=== PATIENT | male | born 1960 | race Caucasian/White ===

== ENCOUNTER 2018-08-06 00:34 | Inpatient (IN) | payer MEDICARE ==
[2018-08-06] MEDS ORDERED: Vancomycin 1GM/ Ns 250ML*** 1 GM/250 ML IVPB IV ONE (02:05)
[2018-08-06] MEDS ORDERED: Zosyn 3.375GM/100 Ml D5W 3.375 GM/100 ML IVPB IV STA (02:05)
[2018-08-06] MEDS ORDERED: Sodium Chloride 0.9% 1000 ML 1,000 ML IV SCH (02:15)
[2018-08-06 02:41] LABS: Mean Cell Volume 101.6 fl (78-100); Mean Corpuscular Hemoglobin 31.9 pg (26-32); Mean Corpuscular Hgb Concent. 31.4 g/dl (32-36); Mean Platelet Volume 9.9 fl (6-9.5); Platelet Count 241 K/mm3 (150-450); Red Blood Count 5.02 M/mm3 (4.1-5.6); Red Cell Distribution Width 13.6 % (11.5-14.0); White Blood Count 7.6 K/mm3 (4.0-10.5)
[2018-08-06 03:05] LABS: INR 1.2 (0.8-3.0)
[2018-08-06 03:09] LABS: ALBUMIN 3.5 g/dL (3.5-5.0); ALKALINE PHOSPHATASE 72 U/L (38-126); ANION GAP 11.4 MEQ/L (5-15); BLOOD UREA NITROGEN 18 mg/dL (9-20); CHLORIDE 103 mmol/L (98-107); Calcium 9.1 mg/dL (8.4-10.2); Carbon Dioxide 31 mmol/L (22-30); Creatinine 1 0.82 mg/dL (0.66-1.25); Glucose 97 mg/dL (74-106); Potassium 4.1 mmol/L (3.5-5.1); SGOT/AST 15 U/L (17-59); SGPT/ALT 9 U/L (0-50); SODIUM 141 mmol/L (137-145); Total Protein 6.9 g/dL (6.3-8.2)
[2018-08-06] MEDS ORDERED: Zosyn 3.375GM/100 Ml D5W 3.375 GM/100 ML IVPB IV ONE (03:14)
--- NOTE | 2018-08-06 03:47 | ERPHSYRPT ---
- History of Present Illness Time Seen by Provider: 08/06/18 01:25 Source: patient Exam Limitations: clinical condition Patient Subjective Stated Complaint: pt states he has poor circulationin his legs and has wounds to bilat lower legs. states he sees dr schwarz but is not able to get in until next week Triage Nursing Assessment: pt alert and oriented. answers questions approp. pt ambulatory with steady gait noted. respirations nonlabored wth lungs cta. scaling, flaking skin noted to bilat lower legs with redness warmth. open areas noted to bilat posterior lower legs with yellow drainage Physician History: PATIENT WITH A HISTORY OF HYPERTENSION, TIA AND PERIPHERAL VASCULAR DISEASE COMPLAINS OF REDNESS, WARMTH, SWELLING AND DRAINAGE FROM BOTH LEGS OVER THE PAST WEEK. HAS ASSOCIATED CALF PAIN, DENIES FEVER OR CHILLS. Method of Injury: other (DENIES INJURY) Occurred: days ago Quality: constant, sharpness Severity of Pain-Max: moderate Severity of Pain-Current: moderate Lower Extremities Pain: leg: bilateral Modifying Factors: Improves With: movement Allergies/Adverse Reactions: No Known Drug Allergies Allergy (Verified 08/06/18 01:25) Home Medications: Aspirin 81 mg PO DAILY 09/16/15 [History] Budesonide/Formoterol Fumarate [Symbicort 160-4.5 Mcg Inhaler] 2 inh IH BID [History] Methylphenidate 5 mg [Ritalin 5 MG] 10 mg PO BID 09/16/15 [History] Hydrocodone Bit/Acetaminophen [[place] 5-325 Tablet] 1 tab DAILY 01/13/16 [History ] Cephalexin Mh 500 mg [Keflex 500 mg] 500 mg TID 03/02/16 [History] Hx Tetanus, Diphtheria Vaccination/Date Given: Yes (2015) Hx Influenza Vaccination/Date Given: No Hx Pneumococcal Vaccination/Date Given: No Immunizations Up to Date: Yes - Review of Systems Constitutional: No Fever, No Chills Eyes: No Symptoms Ears, Nose, & Throat: No Symptoms Respiratory: No Symptoms, No Cough, No Dyspnea Cardiac: No Symptoms, No Chest Pain, No Edema, No Syncope Abdominal/Gastrointestinal: No Symptoms, No Abdominal Pain, No Nausea, No Vomiting, No Diarrhea Genitourinary Symptoms: No Symptoms, No Dysuria Musculoskeletal: No Back Pain, No Neck Pain Skin: Cellulitis, No Rash Neurological: No Symptoms, No Dizziness, No Focal Weakness, No Sensory Changes Psychological: No Symptoms Endocrine: No Symptoms All Other Systems: Reviewed and Negative - Past Medical History Pertinent Past Medical History: Yes Neurological History: No Pertinent History ENT History: No Pertinent History Cardiac History: Congestive Heart Failure Respiratory History: CHF, COPD Endocrine Medical History: No Pertinent History Musculoskeletal History: Other GI Medical History: No Pertinent History History: No Pertinent History Psycho-Social History: No Pertinent History Male Reproductive Disorders: No Pertinent History Other Medical History: lower back pain, chronic venous insuff - Past Surgical History Past Surgical History: Yes Neuro Surgical History: No Pertinent History Cardiac: No Pertinent History Respiratory: No Pertinent History Gastrointestinal: Hernia Repair Genitourinary: No Pertinent History Musculoskeletal: No Pertinent History Male Surgical History: No Pertinent History - Social History Smoking Status: Current every day smoker How long have you smoked: 30-40yrs Exposure to second hand smoke: Yes Drug Use: none Patient Lives Alone: Yes - Nursing Vital Signs Nursing Vital Signs: Initial Vital Signs Temperature 98.4 F 08/06/18 01:10 Pulse Rate 90 08/06/18 01:10 Respiratory Rate 18 08/06/18 01:10 Blood Pressure 113/77 08/06/18 01:10 O2 Sat by Pulse Oximetry 94 L 08/06/18 01:10 Pain Scale Pain Intensity 8 - Physical Exam General Appearance: no apparent distress Eyes, Ears, Nose, Throat Exam: normal ENT inspection Neck Exam: normal inspection Cardiovascular/Respiratory Exam: chest non-tender, normal breath sounds, heart sounds normal Gastrointestinal/Abdominal Exam: non-tender, soft Back Exam: normal inspection, normal range of motion Hips Exam: bilateral: non-tender Legs Exam: bilateral leg: soft tissue tenderness, swelling (MARKED ERYTHEMA, SWELLING BILAT MONAHAN AND CALF CIRCUMFERENCE 41 CM. WITH SEROSANGUINOUS DRAINAGE. BILAT SCALY EXUDATE OVER SHINS) Foot Exam: bilateral foot: other (BILATERAL PEDIS PULSES 2+) DTR - Lower Extremities Exam: knee (R): 2+, knee (L): 2+, ankle (R): 2+, ankle ( L): 2+ Neuro/Tendon Exam: normal sensation Mental Status Exam: alert, oriented x 3 Skin Exam: normal color SpO2 Interpretation: normal SpO2: 94 - Radiology Ultrasound Exam Venous Lower Extremity Ultrasound: discussed w/radiologist (BILATERAL LOWER EXTREMITY VENOUS DOPPLER NEGATIVE) Ordered Tests: Active Orders 24 hr Category Date Time Status Up Ad Monserrat ROUTINE Activity 08/06/18 05:18 Active Call Admit Doctor for Orders ON ADMISSION Care 08/06/18 05:17 Active Code Status Order ROUTINE Care 08/06/18 05:17 Active IV Care Q6H Care 08/06/18 05:[address] in Observation ROUTINE Care 08/06/18 05:17 Active Vital Signs Q4H Care 08/06/18 05:17 Active Regular Diet Diet 08/06/18 Breakfast Active VENOUS BILATERAL EXTREMITY [US] Stat Exams 08/06/18 05:43 Taken BLOOD CULTURE Stat Lab 08/06/18 02:35 Received CBC W DIFF Stat Lab 08/06/18 02:35 Completed CMP Stat Lab 08/06/18 02:35 Completed CULTURE,WOUND Stat Lab 08/06/18 02:03 Ordered D-DIMER QUANTITATION Stat Lab 08/06/18 02:35 Completed Manual Differential NC Stat Lab 08/06/18 02:35 Completed PROTIME WITH INR Stat Lab 08/06/18 02:35 Completed Transfer Order Routine Transfer 08/06/18 Ordered Medication Summary Generic Name Dose Route Start Last Admin Trade Name Freq PRN Reason Stop Dose Admin Acetaminophen 650 mg 08/06/18 05:17 Tylenol 325 Mg PO 09/05/18 05:16 Q4H PRN PRN PAIN AND/OR FEVER Hydrocodone Bitart/Acetaminophen 1 tab 08/06/18 05:20 [place] 5/325 Mg PO 08/11/18 05:19 QID PRN PRN PAIN Sodium Chloride 1,000 mls @ 250 mls/hr 08/06/18 02:15 08/06/18 03:17 Sodium Chloride 0.9% 1000 Ml IV 09/05/18 02:14 250 mls/hr .Q4H LUIS Administration Piperacillin Sod/Tazobactam Sod 3.375 gm in 100 mls @ 200 mls/hr 08/06/18 06: 00 Zosyn 3.375gm/100 Ml D5w IV 09/05/18 05:59 Q6HT LUIS Sodium Chloride 1,000 mls @ 75 mls/hr 08/06/18 05:30 Sodium Chloride 0.9% 1000 Ml IV 09/05/18 05:29 .[id number] LUIS Vancomycin HCl 1 gm/ Sodium 250 mls @ 167 mls/hr 08/06/18 05:30 Chloride IV 09/05/18 05:29 Q24H LUIS Methylphenidate HCl 10 mg 08/06/18 10:00 Ritalin 5 Mg PO 08/11/18 09:59 BID LUIS Discontinued Medications Generic Name Dose Route Start Last Admin Trade Name Freq PRN Reason Stop Dose Admin Vancomycin HCl 1 gm in 250 mls @ 167 mls/hr 08/06/18 02:05 08/06/18 03:59 Vancomycin 1gm/ Ns 250ml IV 08/06/18 03:34 167 mls/hr STAT ONE Administration Piperacillin Sod/Tazobactam Sod 3.375 gm in 100 mls @ 200 mls/hr 08/06/18 02: 05 08/06/18 03:18 Zosyn 3.375gm/100 Ml D5w IV 08/06/18 02:34 200 ml/hr STAT STA 200 mls/hr Administration Piperacillin Sod/Tazobactam Sod Confirm 08/06/18 03:14 Zosyn 3.375gm/100 Ml D5w Administered 08/06/18 03:15 Dose 3.375 gm in 100 mls @ ud IV .STK-MED ONE Vancomycin HCl Confirm 08/06/18 03:51 Vancomycin 1gm/ Ns 250ml Administered 08/06/18 03:52 Dose 250 mls @ ud IV .STK-MED ONE Lab/Rad Data: Laboratory Result Diagrams 08/06/18 02:35 08/06/18 02:35 Laboratory Results 08/06/18 08/06/18 08/06/18 Range/Units 02:35 02:35 02:35 WBC 7.6 (4.0-10.5) K/mm3 RBC 5.02 (4.1-5.6) M/mm3 Hgb 16.0 (12.5-18.0) gm/dl Hct 51.0 H (42-50) % MCV 101.6 H (78-100) fl MCH 31.9 (26-32) pg MCHC 31.4 L (32-36) g/dl RDW 13.6 (11.5-14.0) % Plt Count 241 (150-450) K/mm3 MPV 9.9 H (6-9.5) fl Segmented Neutrophils 68 H (36.-66.) % Band Neutrophils 2 (0.0-2.0) % Lymphocytes (Manual) 13 L (24-44) % Monocytes (Manual) 9 (0.0-12.0) % Eosinophils (Manual) 7 H (0.00-3.0) % Atypical Lymphocytes 1 % Toxic Granulation 1+ Platelet Estimate NORMAL (NORMAL) RBC Morphology ABNORMAL Poikilocytosis 1+ PT 14.0 H (8.83-12.87) SECONDS INR 1.20 (0.8-3.0) D-Dimer 704 H* (215-500) ng/mL Sodium 141 (137-145) mmol/L Potassium 4.1 (3.5-5.1) mmol/L Chloride 103 (98-107) mmol/L Carbon Dioxide 31 H (22-30) mmol/L Anion Gap 11.4 (5-15) MEQ/L BUN 18 (9-20) mg/dL Creatinine 0.82 (0.66-1.25) mg/dL Estimated GFR > 60.0 ML/MIN Glucose 97 (74-106) mg/dL Calcium 9.1 (8.4-10.2) mg/dL Total Bilirubin 0.50 (0.2-1.3) mg/dL AST 15 L (17-59) U/L ALT 9 (0-50) U/L Alkaline Phosphatase 72 (38-126) U/L Serum Total Protein 6.9 (6.3-8.2) g/dL Albumin 3.5 (3.5-5.0) g/dL - Progress Progress Note: 08/06/18 04:19 IV NORMAL SALINE 100ML/HR AFTER 2 SETS OF BLOOD CULTURES, VANCOMYCIN 1GM IVPB AND ZOSYN 3.375GM IVPB Discussed with DrAdamaris: Andre (DISCUSSED WITH DR SEGUNDO AT 0415 FOR OBSERVATION) - Departure Departure Disposition: Observation Clinical Impression: BILATERAL LOWER EXTREMITY CELLULITIS Condition: Stable Critical Care Time: No Referrals: SHAE LI MD [Primary Care Provider] -
[2018-08-06] MEDS ORDERED: Vancomycin 1GM/ Ns 250ML*** 250 ML IV ONE (03:51)
[2018-08-06 04:12] LABS: ATYPICAL LYMPHS 1 %; BAND 2 % (0.0-2.0); Eosinophil 7 % (0.00-3.0); Lymphocytes 13 % (24-44); Monocyte 9 % (0.0-12.0); Neutrophils 68 % (36.-66.); Platelet Estimate NORMAL (NORMAL); Total Cells Counted 100; Toxic Granulation 1+
[2018-08-06 04:13] LABS: Poikilocytosis 1+
[2018-08-06] MEDS ORDERED: TYLENOL 325 MG PO PRN (05:17)
--- NOTE | 2018-08-06 07:57 | XRAY ---
Indication: Bilateral pain and swelling. Two-dimensional sonogram and color Doppler imaging of the major venous vessels of the left and right leg was performed. Comparison: Right leg venous exam August 06, 2018. No thrombus seen in the examined deep venous vessels of the left and right leg including greater saphenous vein. Veins demonstrate normal compressibility. Venous waveforms are normal with and without augmentation. Impression: Left and right legs negative for DVT. Comment: Preliminary report was given.
--- NOTE | 2018-08-06 08:00 | XRAY ---
Indication: Dyspnea. Comparison: May 11, 2018. Portable chest does not include the right costophrenic angle. There remains chronic interstitial lung markings and a few tiny calcified granulomas without focal infiltrate, consolidation, or large effusion. Heart is not enlarged. Bony thorax intact again with mild degenerative changes. No new/acute findings. Impression: Stable nonacute limited chest with chronic features.
[2018-08-06] MEDS: Zosyn 3.375GM/100 Ml D5W 3.375 GM/100 ML IVPB IV SCH ×4 (09:00→23:33)
[2018-08-06] MEDS: Ritalin 5 MG PO SCH ×2 (09:38→21:28)
[2018-08-06] MEDS: NORCO 5/325 MG PO PRN (09:41)
[2018-08-06] MEDS: Sodium Chloride 0.9% 1000 ML 1,000 ML IV SCH (09:42)
--- NOTE | 2018-08-06 11:28 | PCM.HP ---
History of Present Illness - Chief Complaint Chief Complaint: CELLULITIS BILATERAL LOWER EXTREMITIES History of Present Illness: is a 58 year old male who presented to the ER with a complaint of redness , pain and swelling to both lower legs for the last week. He has had problems with wounds on legs before and infections. He does have a history of chf, no known fever or chills. - Review of Systems Constitutional: No Fever, No Chills Respiratory: No Cough, No Short Of Breath Cardiac: No Chest Pain, No Edema, No Syncope Skin: Cellulitis Neurological: No Dizziness, No Focal Weakness, No Sensory Changes All Other Systems: Reviewed and Negative Medications & Allergies Home Medications: Home Medication List Budesonide/Formoterol Fumarate [Symbicort 160-4.5 Mcg Inhaler] 2 inh IH BID [History Confirmed 08/06/18] Methylphenidate 5 mg [Ritalin 5 MG] 10 mg PO BID 09/16/15 [History Confirmed 08/06/18] Carvedilol 3.125 mg [Coreg 3.125 MG] 3.125 mg PO BID 08/06/18 [History Confirmed 08/06/18] Potassium Chloride 10 Meq Tab* [Klor Con 10 MEQ] 10 meq PO DAILY 08/06/18 [ History Confirmed 08/06/18] Sacubitril/Valsartan [Entresto 49 mg-51 mg Tablet] 1 each PO BID 08/06/18 [ History Confirmed 08/06/18] Allergies/Adverse Reactions: Allergies Allergy/AdvReac Type Severity Reaction Status Date / Time No Known Drug Allergies Allergy Verified 08/06/18 01:25 - Past Medical History Past Medical History: Yes Neurological History: No Pertinent History ENT History: No Pertinent History Cardiac History: Congestive Heart Failure Respiratory History: CHF, COPD Endocrine Medical History: No Pertinent History Musculoskelatal History: Other GI Medical History: No Pertinent History History: No Pertinent History Pyscho-Social History: No Pertinent History Male Reproductive Disorders: No Pertinent History Comment: lower back pain, chronic venous insuff - Past Surgical History Past Surgical History: Yes Neuro Surgical History: No Pertinent History Cardiac History: No Pertinent History Respiratory Surgery: No Pertinent History GI Surgical History: Hernia Repair Genitourinary Surgical Hx: No Pertinent History Musculskeletal Surgical Hx: No Pertinent History Male Surgical History: No Pertinent History - Social History Smoking Status: Current every day smoker How long have you smoked: 40 YEARS Exposure to second hand smoke: No Alcohol: None Drug Use: none - Physical Exam Vital Signs: Vital Signs - 24 hr Temp Pulse Resp BP Pulse Ox 08/06/18 07:49 98.7 F 68 18 106/57 91 L 08/06/18 07:36 98.7 F 68 18 106/57 91 L 08/06/18 06:20 62 16 107/62 97 08/06/18 05:45 94 L 08/06/18 05:00 91 H 18 107/59 94 L 08/06/18 04:00 90 18 105/71 100 08/06/18 03:00 84 16 119/82 94 L 08/06/18 02:00 87 18 115/76 98 08/06/18 01:10 98.4 F 90 18 113/77 94 L Oxygen-Last 24 hours O2 Percentage 2 Liters = 28% O2 Percentage 2 Liters = 28% General Appearance: no apparent distress, alert Eye Exam: PERRL/EOMI, eyes nml inspection Respiratory Exam: normal breath sounds, lungs clear, No respiratory distress Cardiovascular Exam: regular rate/rhythm, normal heart sounds, normal peripheral pulses Gastrointestinal/Abdomen Exam: soft, normal bowel sounds, No tenderness, No mass Extremity Exam: pedal edema, swelling (yellow crusting, redness, swelling and warmth to bilateral lower legs. foul odor and drainage present) Results - Labs Lab/Micro Results: Lab Results-Last 24 Hours 08/06/18 08/06/18 08/06/18 Range/Units 02:35 02:35 02:35 WBC 7.6 (4.0-10.5) K/mm3 RBC 5.02 (4.1-5.6) M/mm3 Hgb 16.0 (12.5-18.0) gm/dl Hct 51.0 H (42-50) % MCV 101.6 H (78-100) fl MCH 31.9 (26-32) pg MCHC 31.4 L (32-36) g/dl RDW 13.6 (11.5-14.0) % Plt Count 241 (150-450) K/mm3 MPV 9.9 H (6-9.5) fl Segmented Neutrophils 68 H (36.-66.) % Band Neutrophils 2 (0.0-2.0) % Lymphocytes (Manual) 13 L (24-44) % Monocytes (Manual) 9 (0.0-12.0) % Eosinophils (Manual) 7 H (0.00-3.0) % Atypical Lymphocytes 1 % Toxic Granulation 1+ Platelet Estimate NORMAL (NORMAL) RBC Morphology ABNORMAL Poikilocytosis 1+ PT 14.0 H (8.83-12.87) SECONDS INR 1.20 (0.8-3.0) D-Dimer 704 H* (215-500) ng/mL Sodium 141 (137-145) mmol/L Potassium 4.1 (3.5-5.1) mmol/L Chloride 103 (98-107) mmol/L Carbon Dioxide 31 H (22-30) mmol/L Anion Gap 11.4 (5-15) MEQ/L BUN 18 (9-20) mg/dL Creatinine 0.82 (0.66-1.25) mg/dL Estimated GFR > 60.0 ML/MIN Glucose 97 (74-106) mg/dL Calcium 9.1 (8.4-10.2) mg/dL Total Bilirubin 0.50 (0.2-1.3) mg/dL AST 15 L (17-59) U/L ALT 9 (0-50) U/L Alkaline Phosphatase 72 (38-126) U/L Serum Total Protein 6.9 (6.3-8.2) g/dL Albumin 3.5 (3.5-5.0) g/dL - Radiology Impressions Radiology Exams & Impressions: Radiology Procedures Category Date Time Status CHEST 1 VIEW (PORTABLE) Stat Exams 08/06/18 06:24 Completed VENOUS BILATERAL EXTREMITY [US] Stat Exams 08/06/18 05:43 Completed - Other Procedures and Tests Respiratory Therapy 08/06/18 08:05 RT Screen per Nursing Assess Smoking Cessation Education Assessment/Plan (1) Bilateral cellulitis of lower leg Current Visit: Yes Status: Acute Assessment & Plan: on vanc/zosyn, wound culture pending. will consult PT for wound care Code(s): L03.116 - CELLULITIS OF LEFT LOWER LIMB; L03.115 - CELLULITIS OF RIGHT LOWER LIMB (2) CHF (congestive heart failure) Current Visit: Yes Status: Acute Assessment & Plan: patient is on coreg and entresto, july have to hold due to low bp. assume this is why he is on the ritalin Code(s): I50.9 - HEART FAILURE, UNSPECIFIED
[2018-08-06] MEDS: VANCOCIN 1 GM VIAL*** 1.5 GM in Sodium Chloride 0.9% 500 ML 500 ML IV SCH ×2 (12:31→21:28)
[2018-08-06] MEDS: Coreg 3.125 MG PO SCH ×2 (12:55→21:28)
[2018-08-06] MEDS: ENTRESTO 49 MG-51 MG TABLET PO SCH ×2 (12:56→21:28)
[2018-08-06] MEDS: Klor Con 10 MEQ PO SCH (14:14)
[2018-08-06] MEDS: Advair Hfa 230/21 Mcg COMMON CANISTER IH SCH (20:17)
[2018-08-06] MEDS ORDERED: [UNRECOGNIZED DRUG - OTHER] IH SCH (22:00)
[2018-08-06] MEDS ORDERED: BUDESONIDE IH SCH (22:00)
[2018-08-06] MEDS ORDERED: FORMOTEROL FUMARATE IH SCH (22:00)
[2018-08-07] MEDS: Zosyn 3.375GM/100 Ml D5W 3.375 GM/100 ML IVPB IV SCH ×5 (00:58→23:27)
[2018-08-07] MEDS: Sodium Chloride 0.9% 1000 ML 1,000 ML IV SCH (05:40)
[2018-08-07 06:18] LABS: BASOPHIL % 0.6 % (0.0-0.4); Basophil (Absolute #) 0.04 (0-0.4); Eosinophil % 5.9 % (0.00-5.0); Eosinophil (Absolute #) 0.37 (0-0.5); Granulocyte Absolute (ANC) 3.76 (1.4-6.9); Hematocrit 44.3 % (42-50); Hemoglobin 13.8 gm/dl (12.5-18.0); Lymphocyte (Absolute #) 1.19 (1.0-4.6); Mean Cell Volume 103.7 fl (78-100); Mean Corpuscular Hemoglobin 32.3 pg (26-32); Mean Corpuscular Hgb Concent. 31.2 g/dl (32-36); Mean Platelet Volume 10.2 fl (6-9.5); Monocyte (Absolute #) 0.91 (0.0-1.3); Monocytes % 14.5 % (0.0-12.0); Platelet Count 212 K/mm3 (150-450); Red Blood Count 4.27 M/mm3 (4.1-5.6); Red Cell Distribution Width 13.7 % (11.5-14.0); White Blood Count 6.3 K/mm3 (4.0-10.5)
[2018-08-07 06:21] LABS: ANION GAP 9.3 MEQ/L (5-15); BLOOD UREA NITROGEN 15 mg/dL (9-20); CHLORIDE 109 mmol/L (98-107); Calcium 8.7 mg/dL (8.4-10.2); Carbon Dioxide 27 mmol/L (22-30); Creatinine 1 0.65 mg/dL (0.66-1.25); Glucose 85 mg/dL (74-106); SODIUM 141 mmol/L (137-145)
[2018-08-07] MEDS: Advair Hfa 230/21 Mcg COMMON CANISTER IH SCH ×2 (07:26→20:31)
--- NOTE | 2018-08-07 09:04 | PCM.NOTE ---
Date and Time: 08/07/18902 Subjective Assessment: patient thinks his legs have improved slightly, he has no new complaints today. Objective Exam General Appearance: no apparent distress Neurologic Exam: alert, oriented x 3 Skin Exam: normal color, warm Respiratory Exam: normal breath sounds, lungs clear, No respiratory distress Cardiovascular Exam: regular rate/rhythm, normal heart sounds Gastrointestinal/Abdomen Exam: soft, No tenderness, No mass Extremity Exam: swelling (redness, 2+ edema BLE, warmth) OBJECTIVE DATA Vital Signs: Vital Signs - 24 hr Temp Pulse Resp BP Pulse Ox 08/07/18 07:37 98.5 F 78 18 108/72 97 08/07/18 04:00 98.5 F 79 20 103/57 92 L 08/07/18 00:20 98.7 F 86 22 107/67 94 L 08/06/18 20:17 75 18 95 08/06/18 20:00 98.7 F 89 22 108/64 92 L 08/06/18 16:00 99.0 F 101 H 18 94/54 90 L 08/06/18 13:04 71 16 92 L 08/06/18 12:00 99.1 F 74 18 88/52 91 L Oxygen-Last 24 hours O2 Percentage 2 Liters = 28% O2 Percentage 2 Liters = 28% O2 Percentage 2 Liters = 28% O2 Percentage 2 Liters = 28% O2 Percentage 2 Liters = 28% O2 Percentage 2 Liters = 28% Pain Assessment - Last Documented Pain Intensity 5 Pain Scale Used 0-10 Pain Scale Intake and Output: Intake & Output 08/04/18 08/05/18 08/06/18 08/07/18 11:59 11:59 11:59 11:59 Intake Total 240 3434 Output Total 200 750 Balance 40 2684 Weight 110 kg Lab Results: Lab Results-Last 24 Hours 08/07/18 08/07/18 Range/Units 05:55 05:55 WBC 6.3 (4.0-10.5) K/mm3 RBC 4.27 (4.1-5.6) M/mm3 Hgb 13.8 (12.5-18.0) gm/dl Hct 44.3 (42-50) % MCV 103.7 H (78-100) fl MCH 32.3 H (26-32) pg MCHC 31.2 L (32-36) g/dl RDW 13.7 (11.5-14.0) % Plt Count 212 (150-450) K/mm3 MPV 10.2 H (6-9.5) fl Gran % 60.0 (36.0-66.0) % Eos # (Auto) 0.37 (0-0.5) Absolute Lymphs (auto) 1.19 (1.0-4.6) Absolute Monos (auto) 0.91 (0.0-1.3) Lymphocytes % 19.0 L (24.0-44.0) % Monocytes % 14.5 H (0.0-12.0) % Eosinophils % 5.9 H (0.00-5.0) % Basophils % 0.6 (0.0-0.4) % Absolute Granulocytes 3.76 (1.4-6.9) Basophils # 0.04 (0-0.4) Sodium 141 (137-145) mmol/L Potassium 4.0 (3.5-5.1) mmol/L Chloride 109 H (98-107) mmol/L Carbon Dioxide 27 (22-30) mmol/L Anion Gap 9.3 (5-15) MEQ/L BUN 15 (9-20) mg/dL Creatinine 0.65 L (0.66-1.25) mg/dL Estimated GFR > 60.0 ML/MIN Glucose 85 (74-106) mg/dL Calcium 8.7 (8.4-10.2) mg/dL Radiology Exams: Radiology Procedures Category Date Time Status CHEST 1 VIEW (PORTABLE) Stat Exams 08/06/18 06:24 Completed VENOUS BILATERAL EXTREMITY [US] Stat Exams 08/06/18 05:43 Completed Assessment/Plan (1) Bilateral cellulitis of lower leg Current Visit: Yes Status: Acute Assessment & Plan: on vanc/zosyn, culture pending. seems to be improved slightly today Code(s): L03.116 - CELLULITIS OF LEFT LOWER LIMB; L03.115 - CELLULITIS OF RIGHT LOWER LIMB (2) CHF (congestive heart failure) Current Visit: Yes Status: Acute Code(s): I50.9 - HEART FAILURE, UNSPECIFIED
[2018-08-07] MEDS: ENTRESTO 49 MG-51 MG TABLET PO SCH ×2 (09:35→21:11)
[2018-08-07] MEDS: Coreg 3.125 MG PO SCH ×2 (09:35→21:11)
[2018-08-07] MEDS: Ritalin 5 MG PO SCH ×2 (09:36→21:03)
[2018-08-07] MEDS: Klor Con 10 MEQ PO SCH (09:36)
[2018-08-07] MEDS: NORCO 5/325 MG PO PRN ×2 (10:17→16:24)
[2018-08-07] MEDS: VANCOCIN 1 GM VIAL*** 1.5 GM in Sodium Chloride 0.9% 500 ML 500 ML IV SCH ×2 (10:53→21:03)
[2018-08-08] MEDS: Sodium Chloride 0.9% 1000 ML 1,000 ML IV SCH ×2 (03:50→21:36)
[2018-08-08] MEDS: Zosyn 3.375GM/100 Ml D5W 3.375 GM/100 ML IVPB IV SCH (05:35)
[2018-08-08 06:05] LABS: Hematocrit 42.6 % (42-50); Hemoglobin 13.5 gm/dl (12.5-18.0); Mean Cell Volume 102.9 fl (78-100); Mean Corpuscular Hemoglobin 32.6 pg (26-32); Mean Corpuscular Hgb Concent. 31.7 g/dl (32-36); Platelet Count 192 K/mm3 (150-450); Red Blood Count 4.14 M/mm3 (4.1-5.6); Red Cell Distribution Width 13.6 % (11.5-14.0)
[2018-08-08 06:15] LABS: ANION GAP 8.9 MEQ/L (5-15); BLOOD UREA NITROGEN 14 mg/dL (9-20); CHLORIDE 107 mmol/L (98-107); Calcium 8.7 mg/dL (8.4-10.2); Carbon Dioxide 28 mmol/L (22-30); Creatinine 1 0.62 mg/dL (0.66-1.25); Glucose 77 mg/dL (74-106); SODIUM 141 mmol/L (137-145)
[2018-08-08 07:52] LABS: Eosinophil 5 % (0.00-3.0); Lymphocytes 10 % (24-44); Monocyte 7 % (0.0-12.0); Neutrophils 78 % (36.-66.); Platelet Estimate NORMAL (NORMAL); Total Cells Counted 100
--- NOTE | 2018-08-08 08:30 | PCM.NOTE ---
Date and Time: 08/08/18827 Subjective Assessment: legs are improving, no new complaints. tolerating po, continues to have some pain and swelling in legs but improving. Objective Exam General Appearance: no apparent distress, alert Respiratory Exam: normal breath sounds, lungs clear, No respiratory distress Cardiovascular Exam: regular rate/rhythm, normal heart sounds Gastrointestinal/Abdomen Exam: soft, No tenderness, No mass Extremity Exam: pedal edema (erythema, warmth and drainage from BLE. improved) OBJECTIVE DATA Vital Signs: Vital Signs - 24 hr Temp Pulse Resp BP Pulse Ox 08/08/18 07:59 98.1 F 78 17 111/69 99 08/08/18 04:10 98.1 F 78 20 108/65 95 08/07/18 23:58 98.6 F 74 20 96/56 95 08/07/18 20:31 73 20 95 08/07/18 20:00 98.3 F 81 20 96/83 90 L 08/07/18 16:00 98.5 F 77 18 94/53 90 L 08/07/18 12:02 76 16 98 08/07/18 11:43 98.2 F 74 18 104/59 92 L Oxygen-Last 24 hours O2 Percentage 2 Liters = 28% O2 Percentage 2 Liters = 28% O2 Percentage 2 Liters = 28% Pain Assessment - Last Documented Pain Intensity 4 Pain Scale Used 0-10 Pain Scale Intake and Output: Intake & Output 08/05/18 08/06/18 08/07/18 08/08/18 11:59 11:59 11:59 11:59 Intake Total 240 3674 1040 Output Total 200 750 800 Balance 40 2924 240 Weight 110 kg Lab Results: Lab Results-Last 24 Hours 08/08/18 08/08/18 Range/Units 05:00 05:30 WBC 6.0 (4.0-10.5) K/mm3 RBC 4.14 (4.1-5.6) M/mm3 Hgb 13.5 (12.5-18.0) gm/dl Hct 42.6 (42-50) % MCV 102.9 H (78-100) fl MCH 32.6 H (26-32) pg MCHC 31.7 L (32-36) g/dl RDW 13.6 (11.5-14.0) % Plt Count 192 (150-450) K/mm3 MPV 10.0 H (6-9.5) fl Segmented Neutrophils 78 H (36.-66.) % Lymphocytes (Manual) 10 L (24-44) % Monocytes (Manual) 7 (0.0-12.0) % Eosinophils (Manual) 5 H (0.00-3.0) % Platelet Estimate NORMAL (NORMAL) RBC Morphology NORMAL Sodium 141 (137-145) mmol/L Potassium 4.0 (3.5-5.1) mmol/L Chloride 107 (98-107) mmol/L Carbon Dioxide 28 (22-30) mmol/L Anion Gap 8.9 (5-15) MEQ/L BUN 14 (9-20) mg/dL Creatinine 0.62 L (0.66-1.25) mg/dL Estimated GFR > 60.0 ML/MIN Glucose 77 (74-106) mg/dL Calcium 8.7 (8.4-10.2) mg/dL Assessment/Plan (1) Bilateral cellulitis of lower leg Current Visit: Yes Status: Acute Assessment & Plan: staph aureus on wound culture, will d/c zosyn, continue vanc at this time Code(s): L03.116 - CELLULITIS OF LEFT LOWER LIMB; L03.115 - CELLULITIS OF RIGHT LOWER LIMB (2) CHF (congestive heart failure) Current Visit: Yes Status: Acute Code(s): I50.9 - HEART FAILURE, UNSPECIFIED
[2018-08-08] MEDS: Coreg 3.125 MG PO SCH ×2 (09:15→21:54)
[2018-08-08] MEDS: ENTRESTO 49 MG-51 MG TABLET PO SCH ×2 (09:15→21:54)
[2018-08-08] MEDS: NORCO 5/325 MG PO PRN ×3 (09:15→21:43)
[2018-08-08] MEDS: Klor Con 10 MEQ PO SCH (09:15)
[2018-08-08] MEDS: Ritalin 5 MG PO SCH ×2 (09:16→21:54)
[2018-08-08] MEDS ORDERED: TROUGH DRUG LEVELS IJ ONE (09:30)
[2018-08-08] MEDS: Advair Hfa 230/21 Mcg COMMON CANISTER IH SCH ×2 (10:02→19:43)
[2018-08-08] MEDS: VANCOCIN 1 GM VIAL*** 1.5 GM in Sodium Chloride 0.9% 500 ML 500 ML IV SCH ×2 (10:41→21:55)
[2018-08-09 06:15] LABS: ANION GAP 7.5 MEQ/L (5-15); BLOOD UREA NITROGEN 15 mg/dL (9-20); CHLORIDE 108 mmol/L (98-107); Calcium 8.6 mg/dL (8.4-10.2); Carbon Dioxide 29 mmol/L (22-30); Creatinine 1 0.57 mg/dL (0.66-1.25); Glucose 89 mg/dL (74-106); Hematocrit 41.9 % (42-50); Hemoglobin 13.2 gm/dl (12.5-18.0); Mean Cell Volume 103.2 fl (78-100); Mean Corpuscular Hemoglobin 32.5 pg (26-32); Mean Corpuscular Hgb Concent. 31.5 g/dl (32-36); Mean Platelet Volume 9.9 fl (6-9.5); Platelet Count 193 K/mm3 (150-450); Potassium 4.1 mmol/L (3.5-5.1); Red Blood Count 4.06 M/mm3 (4.1-5.6); Red Cell Distribution Width 13.4 % (11.5-14.0); SODIUM 140 mmol/L (137-145); White Blood Count 5.4 K/mm3 (4.0-10.5)
[2018-08-09] MEDS: Advair Hfa 230/21 Mcg COMMON CANISTER IH SCH (07:39)
[2018-08-09 09:13] LABS: ANISOCYTOSIS 1+; Eosinophil 2 % (0.00-3.0); Lymphocytes 21 % (24-44); Monocyte 7 % (0.0-12.0); Neutrophils 70 % (36.-66.); Platelet Estimate NORMAL (NORMAL); Total Cells Counted 100
--- NOTE | 2018-08-09 09:17 | PCM.NOTE ---
Date and Time: 08/09/18915 - Review of Systems Constitutional: No Fever, No Chills Eyes: No Symptoms Ears, Nose, & Throat: No Symptoms Respiratory: No Cough, No Short Of Breath Cardiac: No Chest Pain, No Edema, No Syncope Abdominal/Gastrointestinal: No Abdominal Pain, No Nausea, No Vomiting, No Diarrhea Genitourinary Symptoms: No Dysuria Musculoskeletal: No Back Pain, No Neck Pain Skin: No Rash Neurological: No Dizziness, No Focal Weakness, No Sensory Changes Psychological: No Symptoms Endocrine: No Symptoms Hematologic/Lymphatic: No Symptoms Immunological/Allergic: No Symptoms Objective Exam General Appearance: no apparent distress, alert Neurologic Exam: alert, oriented x 3, cooperative, normal mood/affect, nml cerebellar function, sensation nml, No motor deficits Skin Exam: normal color, warm, dry Eye Exam: PERRL, EOMI, eyes nml inspection Ears, Nose, Throat Exam: normal ENT inspection, pharynx normal, moist mucous membranes Neck Exam: normal inspection, non-tender, supple, full range of motion Respiratory Exam: normal breath sounds, lungs clear, No respiratory distress Cardiovascular Exam: regular rate/rhythm, normal heart sounds Gastrointestinal/Abdomen Exam: soft, No tenderness, No mass Extremity Exam: normal inspection, normal range of motion Back Exam: normal inspection, normal range of motion, No CVA tenderness, No vertebral tenderness Male Genitalia Exam: deferred Rectal Exam: deferred OBJECTIVE DATA Vital Signs: Vital Signs - 24 hr Temp Pulse Resp BP Pulse Ox 08/09/18 07:38 97.8 F 95 H 20 110/87 92 L 08/09/18 04:00 97.9 F 88 20 91/65 94 L 08/09/18 00:00 98.7 F 79 16 98/59 93 L 08/08/18 20:08 80 18 95 08/08/18 20:00 99.0 F 53 L 18 102/58 94 L 08/08/18 16:00 98.6 F 64 18 107/68 98 08/08/18 11:48 98.3 F 96 H 18 115/58 98 08/08/18 10:06 76 18 99 Oxygen-Last 24 hours O2 Percentage 2 Liters = 28% O2 Percentage 2 Liters = 28% O2 Percentage 2 Liters = 28% O2 Percentage 2 Liters = 28% Pain Assessment - Last Documented Pain Intensity 3 Pain Scale Used 0-10 Pain Scale,FLACC Intake and Output: Intake & Output 08/06/18 08/07/18 08/08/18 08/09/18 11:59 11:59 11:59 11:59 Intake Total 240 3674 1160 3931 Output Total 200 458 292 8724 Balance 40 0544 128 2506 Weight 110 kg 110 kg Lab Results: Lab Results-Last 24 Hours 08/08/18 08/09/18 08/09/18 Range/Units 09:45 05:30 05:30 WBC 5.4 (4.0-10.5) K/mm3 RBC 4.06 L (4.1-5.6) M/mm3 Hgb 13.2 (12.5-18.0) gm/dl Hct 41.9 L (42-50) % MCV 103.2 H (78-100) fl MCH 32.5 H (26-32) pg MCHC 31.5 L (32-36) g/dl RDW 13.4 (11.5-14.0) % Plt Count 193 (150-450) K/mm3 MPV 9.9 H (6-9.5) fl Segmented Neutrophils 70 H (36.-66.) % Lymphocytes (Manual) 21 L (24-44) % Monocytes (Manual) 7 (0.0-12.0) % Eosinophils (Manual) 2 (0.00-3.0) % Platelet Estimate NORMAL (NORMAL) RBC Morphology ABNORMAL Anisocytosis 1+ Sodium 140 (137-145) mmol/L Potassium 4.1 (3.5-5.1) mmol/L Chloride 108 H (98-107) mmol/L Carbon Dioxide 29 (22-30) mmol/L Anion Gap 7.5 (5-15) MEQ/L BUN 15 (9-20) mg/dL Creatinine 0.57 L (0.66-1.25) mg/dL Estimated GFR > 60.0 ML/MIN Glucose 89 (74-106) mg/dL Calcium 8.6 (8.4-10.2) mg/dL Vancomycin Trough 13.42 (10-20) ug/mL Assessment/Plan (1) Bilateral cellulitis of lower leg Current Visit: Yes Status: Acute Code(s): L03.116 - CELLULITIS OF LEFT LOWER LIMB; L03.115 - CELLULITIS OF RIGHT LOWER LIMB (2) Cellulitis of right leg Current Visit: No Status: Acute Code(s): L03.115 - CELLULITIS OF RIGHT LOWER LIMB
[2018-08-09] MEDS: Coreg 3.125 MG PO SCH (09:29)
[2018-08-09] MEDS: Klor Con 10 MEQ PO SCH (09:29)
[2018-08-09] MEDS: ENTRESTO 49 MG-51 MG TABLET PO SCH (09:29)
[2018-08-09] MEDS: NORCO 5/325 MG PO PRN (09:29)
[2018-08-09] MEDS: Ritalin 5 MG PO SCH (09:29)
[2018-08-09] MEDS: VANCOCIN 1 GM VIAL*** 1.5 GM in Sodium Chloride 0.9% 500 ML 500 ML IV SCH (10:26)
[2018-08-09 12:35] VITALS: BP 114/70; PULSE 89; O2SAT 96
[2018-08-09] MEDS ORDERED: Levofloxacin 500MG/100ML D5W 500 MG/100 ML BAG IV SCH (22:00)
--- NOTE | 2018-08-11 15:02 | PCM.DS ---
Discharge Summary Date of Admission: 08/06/18 11:22 Admitting Physician: LIANA SEGUNDO Primary Care Provider: SHAE LI Allergies Allergies No Known Drug Allergies Allergy (Verified 08/09/18 15:23) Hospital Summary - Hospital Course Hospital Course: Last Vital Signs Temp 98 F 08/09/18 12:34 Pulse 89 08/09/18 12:34 Resp 20 08/09/18 12:34 BP 114/70 08/09/18 12:34 Pulse Ox 96 08/09/18 12:34 Allergies No Known Drug Allergies Allergy (Verified 08/09/18 15:23) Patient is being transferred to swing bed - Vitals & Intake/Output Vital Signs: Vital Signs Temperature 98 F 08/09/18 12:34 Pulse Rate 89 08/09/18 12:34 Respiratory Rate 20 08/09/18 12:34 Blood Pressure 114/70 08/09/18 12:34 O2 Sat by Pulse Oximetry 96 08/09/18 12:34 Oxygen-Last Documented O2 Percentage 2 Liters = 28% Intake & Output: Intake & Output 08/09/18 08/10/18 08/11/18 08/12/18 11:59 11:59 11:59 11:59 Intake Total 3931 360 Output Total 1425 400 Balance 2506 -40 - Lab Result Diagrams: 08/09/18 05:30 08/09/18 05:30 Micro Results-Entire Visit: Microbiology 08/06/18 02:35 Blood Culture Gram Stain - Final Blood Not Reportable Blood Culture - Final NO GROWTH 08/06/18 02:35 Blood Culture Gram Stain - Final Blood Not Reportable Blood Culture - Final NO GROWTH 08/06/18 02:03 Wound Culture - Final Leg - Right Lower Staphylococcus Aureus Klebsiella Pneumoniae - Procedures and Test Procedures and Tests throughout Hospitalization: Therapy Orders & Screens 08/06/18 08:05 OT Screen per Nursing Assess Comment: Protocol Order Physician Instructions: Greater than 3 points order OT Admission Screening Reason For Exam: Triggered on Admission Diagnosis: CELLULITIS BILATERAL LOWER EXTREMITIES Open Wound/Cellutlitis/Pressure Ulcers: Yes Acute Fx/ORIF/Change in wt bearing status: No Severe MUSCULOSKELETAL pain: No ADL Dysfunction: No Acute CVA w/Hemiparesis/Hemiplegia: No Decreased Functional Mobility/Strength: Yes Sprain/Strain: No Acute Post-op Mobility Dysfunction: No Total Points: 6 PT Screen per Nursing Assess Comment: Protocol Order Physician Instructions: Greater than 3 points order PT Admission Screenin Reason For Exam: Triggered on Admission Diagnosis: CELLULITIS BILATERAL LOWER EXTREMITIES Open Wound/Cellutlitis/Pressure Ulcers: Yes Acute Fx/ORIF/Change in wt bearing status: No Severe MUSCULOSKELETAL pain: No ADL Dysfunction: No Acute CVA w/Hemiparesis/Hemiplegia: No Decreased Functional Mobility/Strength: Yes Sprain/Strain: No Acute Post-op Mobility Dysfunction: No Total Points: 6 Smoking Cessation Education Comment: Diagnosis: CELLULITIS BILATERAL LOWER EXTREMITIES Smoking Status: Current every day smoker How long have you smoked: 40 YEARS Have you smoked in the past 12 months: Yes Approximately how many cigarettes per day: 1/2 PACK Do you dip or chew tobacco: No 08/06/18 11:26 Oxygen Nasal Cannula 2 lpm Comment: Diagnosis: CELLULITIS BILATERAL LOWER EXTREMITIES Respiratory Therapy Assessment DAILY Comment: Diagnosis: CELLULITIS BILATERAL LOWER EXTREMITIES 08/09/18 10:35 PT Eval & Treat (MD Order) ROUTINE Reason for Eval:: WOUND CARE Diagnosis: CELLULITIS BILATERAL LOWER EXTREMITIES, FAILED OUTPATIENT Discharge Exam General Appearance: no apparent distress, alert Neurologic Exam: alert, oriented x 3, cooperative, normal mood/affect, nml cerebellar function, sensation nml, No motor deficits Eye Exam: PERRL, EOMI, eyes nml inspection Ears, Nose, Throat Exam: normal ENT inspection, pharynx normal, moist mucous membranes Neck Exam: normal inspection, non-tender, supple, full range of motion Respiratory Exam: normal breath sounds, lungs clear, No respiratory distress Cardiovascular Exam: regular rate/rhythm, normal heart sounds Gastrointestinal/Abdomen Exam: soft, No tenderness, No mass Male Genitalia Exam: deferred Rectal Exam: deferred Back Exam: normal inspection, normal range of motion, No CVA tenderness, No vertebral tenderness Extremity Exam: normal inspection, normal range of motion Skin Exam: normal color, warm, dry Final Diagnosis/Problem List - Final Discharge Diagnosis/Problem (1) Bilateral cellulitis of lower leg Status: Acute Code(s): L03.116 - CELLULITIS OF LEFT LOWER LIMB; L03.115 - CELLULITIS OF RIGHT LOWER LIMB (2) Cellulitis of right leg Status: Acute Code(s): L03.115 - CELLULITIS OF RIGHT LOWER LIMB - Discharge Discharge Date: 08/09/18 Disposition: Swing Bed @ [facility] Condition: Stable Prescriptions: No Action Budesonide/Formoterol Fumarate [Symbicort 160-4.5 Mcg Inhaler] 2 inh IH BID Methylphenidate 5 mg [Ritalin 5 MG] 10 mg PO BID Carvedilol 3.125 mg [Coreg 3.125 MG] 3.125 mg PO BID Potassium Chloride 10 Meq Tab* [Klor Con 10 MEQ] 10 meq PO DAILY Sacubitril/Valsartan [Entresto 49 mg-51 mg Tablet] 1 each PO BID Follow up with: SHAE LI MD [Primary Care Provider] - 1 Week
== END 2018-08-09 15:06 | disposition swing bed (61) | DRG 603 ==
LOC: ED 00:34 → MED SURG 07:05 → OBSVTOIN 11:22
PROVIDERS: ADMIT Family Medicine; ATTEND General Practice
DX: L03.116 Cellulitis of left lower limb (principal); L03.115 Cellulitis of right lower limb; I10 Essential (primary) hypertension; J44.9 Chronic obstructive pulmonary disease, unspecified; Z86.73 Personal history of transient ischemic attack (TIA), and cerebral infarction without residual deficits; Z79.899 Other long term (current) drug therapy; F17.200 Nicotine dependence, unspecified, uncomplicated
CPT/HCPCS: 36415; 71045; 80048; 80053; 80202; 85025; 85379; 85610; 87040; 87070; 87077; 87186; 93970; 94640; 94760; 96360; 96361; 96365; 96367; 99285; J2543; J3370; A9270-GY

== ENCOUNTER 2018-08-09 14:37 | Inpatient (IN) | payer MEDICARE ==
[2018-08-09] MEDS ORDERED: TYLENOL 325 MG PO PRN (15:12)
[2018-08-09] MEDS ORDERED: Aplisol ID ONE (15:18)
[2018-08-09] MEDS: Sodium Chloride 0.9% 1000 ML 1,000 ML IV SCH (16:16)
[2018-08-09] MEDS: NORCO 5/325 MG PO PRN (16:16)
[2018-08-09 16:19] LABS: BLOOD UREA NITROGEN 15 mg/dL (9-20); CHLORIDE 105 mmol/L (98-107); Calcium 8.9 mg/dL (8.4-10.2); Carbon Dioxide 31 mmol/L (22-30); Creatinine 1 0.74 mg/dL (0.66-1.25); Glucose 78 mg/dL (74-106); SODIUM 141 mmol/L (137-145)
[2018-08-09] MEDS: Levofloxacin 500MG/100ML D5W 500 MG/100 ML BAG IV SCH (16:20)
[2018-08-09] MEDS: Advair Hfa 230/21 Mcg COMMON CANISTER IH SCH (20:34)
[2018-08-09] MEDS: Coreg 3.125 MG PO SCH (22:33)
[2018-08-09] MEDS: ENTRESTO 49 MG-51 MG TABLET PO SCH (22:33)
[2018-08-09] MEDS: Ritalin 5 MG PO SCH (22:34)
[2018-08-10] MEDS: Sodium Chloride 0.9% 1000 ML 1,000 ML IV SCH ×2 (05:30→20:16)
[2018-08-10] MEDS: Advair Hfa 230/21 Mcg COMMON CANISTER IH SCH ×2 (08:38→20:14)
[2018-08-10] MEDS: Levofloxacin 500MG/100ML D5W 500 MG/100 ML BAG IV SCH (09:42)
[2018-08-10] MEDS: Klor Con 10 MEQ PO SCH (09:43)
[2018-08-10] MEDS: NORCO 5/325 MG PO PRN ×2 (09:43→20:59)
[2018-08-10] MEDS: Ritalin 5 MG PO SCH ×2 (09:43→22:01)
[2018-08-10] MEDS: ENTRESTO 49 MG-51 MG TABLET PO SCH ×2 (09:44→22:01)
[2018-08-10] MEDS: Coreg 3.125 MG PO SCH ×2 (09:44→22:01)
--- NOTE | 2018-08-10 13:31 | PCM.NOTE ---
Date and Time: 08/10/18 1327 Subjective Assessment: doing ok - Review of Systems Constitutional: No Fever, No Chills Eyes: No Symptoms Ears, Nose, & Throat: No Symptoms Respiratory: No Cough, No Short Of Breath Cardiac: No Chest Pain, No Edema, No Syncope Abdominal/Gastrointestinal: No Abdominal Pain, No Nausea, No Vomiting, No Diarrhea Genitourinary Symptoms: No Dysuria Musculoskeletal: No Back Pain, No Neck Pain Skin: No Rash Neurological: No Dizziness, No Focal Weakness, No Sensory Changes Psychological: No Symptoms Endocrine: No Symptoms Hematologic/Lymphatic: No Symptoms Immunological/Allergic: No Symptoms Objective Exam General Appearance: no apparent distress, alert Neurologic Exam: alert, oriented x 3, cooperative, normal mood/affect, nml cerebellar function, sensation nml, No motor deficits Skin Exam: normal color, warm, dry Eye Exam: PERRL, EOMI, eyes nml inspection Ears, Nose, Throat Exam: normal ENT inspection, pharynx normal, moist mucous membranes Neck Exam: normal inspection, non-tender, supple, full range of motion Respiratory Exam: normal breath sounds, lungs clear, No respiratory distress Cardiovascular Exam: regular rate/rhythm, normal heart sounds Gastrointestinal/Abdomen Exam: soft, No tenderness, No mass Extremity Exam: normal inspection, normal range of motion Back Exam: normal inspection, normal range of motion, No CVA tenderness, No vertebral tenderness Male Genitalia Exam: deferred Rectal Exam: deferred OBJECTIVE DATA Vital Signs: Vital Signs - 24 hr Temp Pulse Resp BP Pulse Ox 08/10/18 11:05 98.1 F 86 20 122/68 97 08/10/18 08:39 81 18 99 08/10/18 07:33 98.2 F 83 20 117/68 97 08/09/18 21:27 50 L 18 96 08/09/18 20:00 98.0 F 62 18 98/54 98 08/09/18 15:28 98 F 86 20 116/68 96 Oxygen-Last 24 hours O2 Percentage 2 Liters = 28% O2 Percentage 2 Liters = 28% O2 Percentage 2 Liters = 28% O2 Percentage 2 Liters = 28% Pain Assessment - Last Documented Pain Intensity 6 Pain Scale Used 0-10 Pain Scale Intake and Output: Intake & Output 08/08/18 08/09/18 08/10/18 08/11/18 11:59 11:59 11:59 11:59 Intake Total 2956 Output Total 750 Balance 2206 Weight 223 kg Lab Results: Lab Results-Last 24 Hours 08/09/18 Range/Units 15:45 Sodium 141 (137-145) mmol/L Potassium 4.0 (3.5-5.1) mmol/L Chloride 105 (98-107) mmol/L Carbon Dioxide 31 H (22-30) mmol/L Anion Gap 8.0 (5-15) MEQ/L BUN 15 (9-20) mg/dL Creatinine 0.74 (0.66-1.25) mg/dL Estimated GFR > 60.0 ML/MIN Glucose 78 (74-106) mg/dL Calcium 8.9 (8.4-10.2) mg/dL Multi-Disciplinary Progress Notes: Multi-Disciplinary Progress Notes 08/09/18 16:20 Case Management Note by Ebony Haney [employer]ERS SIGNED AND ON THE CHART. Initialized on 08/09/18 16:20 - END OF NOTE Assessment/Plan (1) Bilateral cellulitis of lower leg Current Visit: No Status: Acute Assessment & Plan: Last Vital Signs Temp 98.1 F 08/10/18 11:05 Pulse 86 08/10/18 11:05 Resp 20 08/10/18 11:05 BP 122/68 08/10/18 11:05 Pulse Ox 97 08/10/18 11:05 Allergies No Known Drug Allergies Allergy (Verified 08/09/18 15:23) Active Medications Acetaminophen (Tylenol 325 Mg) 650 mg PO Q4H PRN PRN PRN Reason: PAIN AND/OR FEVER Stop: 09/05/18 05:16 Hydrocodone Bitart/Acetaminophen ([place] 5/325 Mg) 1 tab PO QID PRN PRN PRN Reason: PAIN Stop: 08/11/18 05:19 Last Admin: 08/10/18 09:43 Dose: 1 tab Carvedilol (Coreg 3.125 Mg) 3.125 mg PO BID [facility] Stop: 09/05/18 12:59 Last Admin: 08/10/18 09:44 Dose: Not Given Levofloxacin/Dextrose (Levofloxacin 500mg/100ml D5w) 500 mg in 100 mls @ 100 mls/hr IV Q24H10 [facility] Stop: 09/08/18 16:29 Last Admin: 08/10/18 09:42 Dose: 100 mls/hr Sodium Chloride (Sodium Chloride 0.9% 1000 Ml) 1,000 mls @ 75 mls/hr IV .[id number] [facility] Stop: 09/05/18 05:29 Last Admin: 08/10/18 05:30 Dose: 75 mls/hr Methylphenidate HCl (Ritalin 5 Mg) 10 mg PO BID [facility] Stop: 08/11/18 09:59 Last Admin: 08/10/18 09:43 Dose: 10 mg Potassium Chloride (Klor Con 10 Meq) 10 meq PO DAILY [facility] Stop: 09/05/18 12:59 Last Admin: 08/10/18 09:43 Dose: 10 meq Sacubitril/Valsartan (Entresto 49 Mg-51 Mg Tablet) 1 tablet PO BID [facility] Stop: 09/05/18 12:59 Last Admin: 08/10/18 09:44 Dose: Not Given Fluticasone/Salmeterol (Advair Hfa 230/21 Mcg Common Canister*) 2 puff IH BIDRT [facility] Stop: 09/05/18 18:59 Last Admin: 08/10/18 08:38 Dose: 2 puff Intake & Output 08/10/18 08/11/18 11:59 11:59 Intake Total 2956 Output Total 750 Balance 2206 Weight 223 kg Orders 08/09/18 15:12 Up Ad Monserrat ROUTINE Code Status Order ROUTINE IV Care Q6H Nursing [Miscellaneous Nursing Order] ROUTINE Extension Service Specialist/Discharge Plan ROUTINE Acetaminophen 325 mg [Tylenol 325 mg] 650 mg PO Q4H PRN PRN Hydrocodone/APAP 5/325 [[place] 5/325 mg] 1 tab PO QID PRN PRN NaCl 0.9% 1000 ml [Sodium Chloride 0.9% 1000 ML] 1,000 ml IV 75 mls/hr Oxygen Nasal Cannula 2 lpm Pulse Oximetry .spot check Respiratory Therapy Assessment DAILY 08/09/18 15:16 Cardio-Pulmonary Rehab .as ordered 08/09/18 15:18 Activities per Activity Direct . PLANNED BY SALES OPERATIONS COORDINATOR Admit to Swing Bed ROUTINE Continue meds from acute care ROUTINE Intake and Output Q12H May participate in POC ROUTINE Vital Signs Q12H Weight,Daily Q7D 08/09/18 15:20 Up With Assistance TOLERATED 08/09/18 16:30 Levofloxacin [Levofloxacin 500MG/100ML D5W] 500 mg in 100 ml IV Q24H10 08/09/18 19:00 Fluticasone/Salmeterol 230/21 [Advair Hfa 230/21 Mcg COMMON CANISTER*] 2 puff IH BIDRT 08/09/18 22:00 Carvedilol 3.125 mg [Coreg 3.125 MG] 3.125 mg PO BID Methylphenidate 5 mg [Ritalin 5 MG] 10 mg PO BID Sacubitril/Valsartan [Entresto 49 mg-51 mg Tablet] 1 tablet PO BID 08/09/18 Dinner Regular Diet 08/10/18 10:00 Potassium Chloride 10 Meq Tab* [Klor Con 10 MEQ] 10 meq PO DAILY 08/23/18 15:30 BMP Q14D Lab Tests 08/09/18 15:45 Sodium 141 Potassium 4.0 Chloride 105 Carbon Dioxide 31 H Anion Gap 8.0 BUN 15 Creatinine 0.74 Estimated GFR > 60.0 Glucose 78 Calcium 8.9 Code(s): L03.116 - CELLULITIS OF LEFT LOWER LIMB; L03.115 - CELLULITIS OF RIGHT LOWER LIMB (2) Bleeding from varicose vein Current Visit: No Status: Acute Code(s): I83.899 - VARICOS VN UNSP LOWER EXTREMITY WITH OTHER COMPLICATIONS
[2018-08-11] MEDS: NORCO 5/325 MG PO PRN ×3 (04:00→19:56)
[2018-08-11] MEDS: Advair Hfa 230/21 Mcg COMMON CANISTER IH SCH ×2 (07:52→17:35)
[2018-08-11] MEDS: Sodium Chloride 0.9% 1000 ML 1,000 ML IV SCH (10:15)
[2018-08-11] MEDS: Levofloxacin 500MG/100ML D5W 500 MG/100 ML BAG IV SCH (10:38)
[2018-08-11] MEDS: Coreg 3.125 MG PO SCH ×2 (10:38→21:14)
[2018-08-11] MEDS: Klor Con 10 MEQ PO SCH (10:38)
[2018-08-11] MEDS: ENTRESTO 49 MG-51 MG TABLET PO SCH ×2 (10:38→21:14)
[2018-08-11] MEDS: Ritalin 5 MG PO SCH ×2 (11:06→21:14)
--- NOTE | 2018-08-11 12:13 | PCM.NOTE ---
Date and Time: 08/11/18 1212 Subjective Assessment: doing better - Review of Systems Constitutional: No Fever, No Chills Eyes: No Symptoms Ears, Nose, & Throat: No Symptoms Respiratory: No Cough, No Short Of Breath Cardiac: No Chest Pain, No Edema, No Syncope Abdominal/Gastrointestinal: No Abdominal Pain, No Nausea, No Vomiting, No Diarrhea Genitourinary Symptoms: No Dysuria Musculoskeletal: No Back Pain, No Neck Pain Skin: No Rash Neurological: No Dizziness, No Focal Weakness, No Sensory Changes Psychological: No Symptoms Endocrine: No Symptoms Hematologic/Lymphatic: No Symptoms Immunological/Allergic: No Symptoms Objective Exam General Appearance: no apparent distress, alert Neurologic Exam: alert, oriented x 3, cooperative, normal mood/affect, nml cerebellar function, sensation nml, No motor deficits Skin Exam: normal color, warm, dry Eye Exam: PERRL, EOMI, eyes nml inspection Ears, Nose, Throat Exam: normal ENT inspection, pharynx normal, moist mucous membranes Neck Exam: normal inspection, non-tender, supple, full range of motion Respiratory Exam: normal breath sounds, lungs clear, No respiratory distress Cardiovascular Exam: regular rate/rhythm, normal heart sounds Gastrointestinal/Abdomen Exam: soft, No tenderness, No mass Extremity Exam: normal inspection, normal range of motion Back Exam: normal inspection, normal range of motion, No CVA tenderness, No vertebral tenderness Male Genitalia Exam: deferred Rectal Exam: deferred OBJECTIVE DATA Vital Signs: Vital Signs - 24 hr Temp Pulse Resp BP Pulse Ox 08/11/18 08:26 98.5 F 70 18 106/65 94 L 08/11/18 07:53 74 18 92 L 08/10/18 21:17 56 L 18 95 08/10/18 21:00 98.0 F 94 H 20 130/78 94 L Oxygen-Last 24 hours O2 Percentage 2 Liters = 28% Pain Assessment - Last Documented Pain Intensity 7 Pain Scale Used 0-10 Pain Scale Intake and Output: Intake & Output 08/09/18 08/10/18 08/11/18 08/12/18 11:59 11:59 11:59 11:59 Intake Total 0886 1979 Output Total 750 650 Balance 2206 1329 Weight 223 kg Assessment/Plan (1) Bilateral cellulitis of lower leg Current Visit: Yes Status: Acute Assessment & Plan: continue present management Code(s): L03.116 - CELLULITIS OF LEFT LOWER LIMB; L03.115 - CELLULITIS OF RIGHT LOWER LIMB (2) Bleeding from varicose vein Current Visit: No Status: Acute Code(s): I83.899 - VARICOS VN UNSP LOWER EXTREMITY WITH OTHER COMPLICATIONS
[2018-08-12] MEDS: NORCO 5/325 MG PO PRN ×2 (00:48→07:46)
[2018-08-12] MEDS: Sodium Chloride 0.9% 1000 ML 1,000 ML IV SCH (00:48)
[2018-08-12] MEDS: Advair Hfa 230/21 Mcg COMMON CANISTER IH SCH (06:45)
[2018-08-12 07:24] VITALS: BP 130/78; PULSE 78; O2SAT 97
[2018-08-12] MEDS: Levofloxacin 500MG/100ML D5W 500 MG/100 ML BAG IV SCH (09:12)
[2018-08-12] MEDS: Klor Con 10 MEQ PO SCH (09:13)
[2018-08-12] MEDS: Coreg 3.125 MG PO SCH (09:13)
[2018-08-12] MEDS: Ritalin 5 MG PO SCH (09:13)
[2018-08-12] MEDS: ENTRESTO 49 MG-51 MG TABLET PO SCH (09:14)
--- NOTE | 2018-08-12 12:38 | PCM.HP.ADD ---
Addendum to History & Physical - History & Physical Addendum Addendum to History & Physical: This certifies that the History & Physical in the electronic chart reflects the current health status of the patient. If there are changes in the H&P these changes/exceptions are listed as follows.
--- NOTE | 2018-08-12 12:45 | PCM.DS ---
Discharge Summary Date of Admission: 08/09/18 15:07 Admitting Physician: SHAE LI Primary Care Provider: SHAE LI Allergies Allergies No Known Drug Allergies Allergy (Verified 08/09/18 15:23) Hospital Summary - Hospital Course Hospital Course: Last Vital Signs Temp 97.8 F 08/12/18 07:23 Pulse 78 08/12/18 07:23 Resp 20 08/12/18 07:23 BP 130/78 08/12/18 07:23 Pulse Ox 97 08/12/18 07:23 Allergies No Known Drug Allergies Allergy (Verified 08/09/18 15:23) Active Medications Acetaminophen (Tylenol 325 Mg) 650 mg PO Q4H PRN PRN PRN Reason: PAIN AND/OR FEVER Stop: 09/05/18 05:16 Hydrocodone Bitart/Acetaminophen ([place] 5/325 Mg) 1 tab PO QID PRN PRN PRN Reason: PAIN Stop: 08/16/18 10:25 Last Admin: 08/12/18 07:46 Dose: 1 tab Carvedilol (Coreg 3.125 Mg) 3.125 mg PO BID [facility] Stop: 09/05/18 12:59 Last Admin: 08/12/18 09:13 Dose: 3.125 mg Levofloxacin/Dextrose (Levofloxacin 500mg/100ml D5w) 500 mg in 100 mls @ 100 mls/hr IV Q24H10 [facility] Stop: 09/08/18 16:29 Last Admin: 08/12/18 09:12 Dose: 100 mls/hr Sodium Chloride (Sodium Chloride 0.9% 1000 Ml) 1,000 mls @ 75 mls/hr IV .[id number] [facility] Stop: 09/05/18 05:29 Last Admin: 08/12/18 00:48 Dose: 75 mls/hr Methylphenidate HCl (Ritalin 5 Mg) 10 mg PO BID [facility] Stop: 08/16/18 09:59 Last Admin: 08/12/18 09:13 Dose: 10 mg Potassium Chloride (Klor Con 10 Meq) 10 meq PO DAILY [facility] Stop: 09/05/18 12:59 Last Admin: 08/12/18 09:13 Dose: 10 meq Sacubitril/Valsartan (Entresto 49 Mg-51 Mg Tablet) 1 tablet PO BID [facility] Stop: 09/05/18 12:59 Last Admin: 08/12/18 09:14 Dose: 1 tablet Fluticasone/Salmeterol (Advair Hfa 230/21 Mcg Common Canister*) 2 puff IH BIDRT [facility] Stop: 09/05/18 18:59 Last Admin: 08/12/18 06:45 Dose: 2 puff Intake & Output 08/12/18 08/13/18 11:59 11:59 Intake Total 2138 Output Total 1800 Balance 338 Weight 123.7 kg Orders 08/23/18 15:30 BMP Q14D - Vitals & Intake/Output Vital Signs: Vital Signs Temperature 97.8 F 08/12/18 07:23 Pulse Rate 78 08/12/18 07:23 Respiratory Rate 20 08/12/18 07:23 Blood Pressure 130/78 08/12/18 07:23 O2 Sat by Pulse Oximetry 97 08/12/18 07:23 Oxygen-Last Documented O2 Percentage 2 Liters = 28% Intake & Output: Intake & Output 08/10/18 08/11/18 08/12/18 08/13/18 11:59 11:59 11:59 11:59 Intake Total 2956 1979 2138 Output Total 638 904 5331 Balance 2206 1329 338 Weight 123.7 kg 123.7 kg - Lab Result Diagrams: 08/09/18 15:45 - Procedures and Test Procedures and Tests throughout Hospitalization: Therapy Orders & Screens 08/09/18 15:12 OT Screen per Nursing Assess ONCE Comment: Protocol Order Physician Instructions: Greater than 3 points order OT Admission Screening Reason For Exam: Triggered on Admission Diagnosis: CELLULITIS BILATERAL LOWER EXTREMITIES Open Wound/Cellutlitis/Pressure Ulcers: Yes Acute Fx/ORIF/Change in wt bearing status: No Severe MUSCULOSKELETAL pain: No ADL Dysfunction: No Acute CVA w/Hemiparesis/Hemiplegia: No Decreased Functional Mobility/Strength: Yes Sprain/Strain: No Acute Post-op Mobility Dysfunction: No Total Points: 6 PT Eval & Treat (MD Order) ROUTINE Reason for Eval:: WOUND CARE TO BILAT [employer]IT [employer]ENGTHENING AND ENDURANCE Diagnosis: CELLULITIS BILATERAL LOWER EXTREMITIES, FAILED OUTPATIENT Oxygen Nasal Cannula 2 lpm Comment: Diagnosis: CELLULITIS BILATERAL LOWER EXTREMITIES Respiratory Therapy Assessment DAILY Comment: Diagnosis: CELLULITIS BILATERAL LOWER EXTREMITIES Discharge Exam General Appearance: no apparent distress, alert Neurologic Exam: alert, oriented x 3, cooperative, normal mood/affect, nml cerebellar function, sensation nml, No motor deficits Eye Exam: PERRL, EOMI, eyes nml inspection Ears, Nose, Throat Exam: normal ENT inspection, pharynx normal, moist mucous membranes Neck Exam: normal inspection, non-tender, supple, full range of motion Respiratory Exam: normal breath sounds, lungs clear, No respiratory distress Cardiovascular Exam: regular rate/rhythm, normal heart sounds Gastrointestinal/Abdomen Exam: soft, No tenderness, No mass Male Genitalia Exam: deferred Rectal Exam: deferred Back Exam: normal inspection, normal range of motion, No CVA tenderness, No vertebral tenderness Extremity Exam: normal inspection, normal range of motion Skin Exam: normal color, warm, dry Final Diagnosis/Problem List - Final Discharge Diagnosis/Problem (1) Bilateral cellulitis of lower leg Current Visit: Yes Status: Acute Assessment & Plan: improving. will discharge home with outpatient physical therapy for leg wounds and will start oral levaquin 500 mg po daily for 7 more days Code(s): L03.116 - CELLULITIS OF LEFT LOWER LIMB; L03.115 - CELLULITIS OF RIGHT LOWER LIMB (2) Bleeding from varicose vein Current Visit: No Status: Acute Code(s): I83.899 - VARICOS VN UNSP LOWER EXTREMITY WITH OTHER COMPLICATIONS - Discharge Discharge Date: 08/12/18 Disposition: Home, Self-Care Condition: Stable Prescriptions: New Levofloxacin [Levaquin] 500 mg PO DAILY #7 tablet Continue Budesonide/Formoterol Fumarate [Symbicort 160-4.5 Mcg Inhaler] 2 inh IH BID Methylphenidate 5 mg [Ritalin 5 MG] 10 mg PO BID Carvedilol 3.125 mg [Coreg 3.125 MG] 3.125 mg PO BID Potassium Chloride 10 Meq Tab* [Klor Con 10 MEQ] 10 meq PO DAILY Sacubitril/Valsartan [Entresto 49 mg-51 mg Tablet] 1 each PO BID Additional Instructions: outpatient physical therapy and wound care Follow up with: SHAE LI MD [Primary Care Provider] - 1 Week
== END 2018-08-12 14:45 | disposition home or self-care (01) | DRG 603 ==
LOC: MED SURG 15:07
PROVIDERS: ADMIT General Practice; ATTEND General Practice
DX: L03.116 Cellulitis of left lower limb (principal); L03.115 Cellulitis of right lower limb; I83.899 Varicose veins of unspecified lower extremity with other complications; J44.9 Chronic obstructive pulmonary disease, unspecified; Z79.899 Other long term (current) drug therapy; F17.200 Nicotine dependence, unspecified, uncomplicated
CPT/HCPCS: 36415; 80048; 94640; 94760; A6457; J1956; A9270-GY

== ENCOUNTER 2019-09-22 13:25 | Emergency (ER) | payer MEDICARE ==
--- NOTE | 2019-09-22 13:53 | ERPHSYRPT ---
- History of Present Illness Time Seen by Provider: 09/22/19 13:45 Patient Subjective Stated Complaint: R foot swelling Triage Nursing Assessment: pt to ED from therapy department c/o R foot swelling for a lengthy unknown amount of time. pt was being seen in therapy and states "therapy lady brought me down here for some antibiotics." pt reports hx cellulitis and athletes foot and has been in therapy for ambulation assistance since diagnosis. denies pain. no loss of sensation in R foot, noted pitting edema bilaterally, 2+ R side. Physician History: Patient is a 59-year-old male who has recurrent cellulitis of both extremities the latest primarily of the right foot. He was sent from PT to the ER for some antibiotic treatment to be initiated since his PCP is on vacation. There was also concern that he might have a fungal element. He has had episodes of cellul itis frequently. Occurred: other (Chronic recurrent cellulitis of the lower extremities) Severity of Pain-Max: mild Severity of Pain-Current: mild Lower Extremities Pain: foot: right (Sterile dressing in place) Modifying Factors: Improves With: movement Associated Symptoms: none Allergies/Adverse Reactions: No Known Drug Allergies Allergy (Verified 08/09/18 15:23) Home Medications: Budesonide/Formoterol Fumarate [Symbicort 160-4.5 Mcg Inhaler] 2 inh IH BID 09/16/15 [History] Methylphenidate 5 mg [Ritalin 5 MG] 10 mg PO BID 09/16/15 [History] Carvedilol 3.125 mg [Coreg 3.125 MG] 3.125 mg PO BID 08/06/18 [History] Potassium Chloride 10 Meq Tab* [Klor Con 10 MEQ] 10 meq PO DAILY 08/06/18 [History] Sacubitril/Valsartan [Entresto 49 mg-51 mg Tablet] 1 each PO BID 08/06/18 [History] Hx Tetanus, Diphtheria Vaccination/Date Given: Yes (2015) Hx Influenza Vaccination/Date Given: Yes Hx Pneumococcal Vaccination/Date Given: Yes Travel Risk - International Travel Have you traveled outside of the country in past 3 weeks: No - Coronavirus Screening Are you exhibiting any of the following symptoms?: No Close contact with a COVID-19 positive Pt in past 14-21 Days: No - Review of Systems Constitutional: No Fever, No Chills Eyes: No Symptoms Ears, Nose, & Throat: No Symptoms Respiratory: No Cough, No Dyspnea Cardiac: No Chest Pain, No Edema, No Syncope Abdominal/Gastrointestinal: No Abdominal Pain, No Nausea, No Vomiting, No Diarrhea Genitourinary Symptoms: No Dysuria Musculoskeletal: No Back Pain, No Neck Pain Skin: Cellulitis (Right foot), No Rash Neurological: No Dizziness, No Focal Weakness, No Sensory Changes Psychological: No Symptoms Endocrine: No Symptoms All Other Systems: Reviewed and Negative - Past Medical History Pertinent Past Medical History: Yes Neurological History: No Pertinent History ENT History: No Pertinent History Cardiac History: Congestive Heart Failure, Peripheral Vascular Disease Respiratory History: Bronchitis, CHF, COPD Endocrine Medical History: No Pertinent History Musculoskeletal History: No Pertinent History GI Medical History: No Pertinent History History: No Pertinent History Psycho-Social History: No Pertinent History Male Reproductive Disorders: No Pertinent History Other Medical History: PATIENT REPORTS USES CANE DUE TO POOR BALANCE. DENIES ANY NEURO ISSUES OR NEUROPATHY - Past Surgical History Past Surgical History: Yes Neuro Surgical History: No Pertinent History Cardiac: No Pertinent History Respiratory: No Pertinent History Gastrointestinal: Hernia Repair Genitourinary: No Pertinent History Musculoskeletal: No Pertinent History Male Surgical History: No Pertinent History - Social History Smoking Status: Current every day smoker How long have you smoked: 40 YEARS Exposure to second hand smoke: No Drug Use: none Patient Lives Alone: Yes - Nursing Vital Signs Nursing Vital Signs: Initial Vital Signs Temperature 98.1 F 09/22/19 13:32 Pulse Rate 100 H 09/22/19 13:32 Respiratory Rate 18 09/22/19 13:32 Blood Pressure 116/81 09/22/19 13:32 O2 Sat by Pulse Oximetry 93 L 09/22/19 13:32 Pain Scale Pain Intensity 0 - Physical Exam General Appearance: alert Eyes, Ears, Nose, Throat Exam: moist mucous membranes Neck Exam: non-tender, supple Cardiovascular/Respiratory Exam: chest non-tender, normal breath sounds, regular rate/rhythm, no respiratory distress Gastrointestinal/Abdominal Exam: non-tender, guarding Back Exam: normal inspection, No vertebral tenderness Legs Exam: right leg: soft tissue tenderness, swelling Ankle Exam: right ankle: soft tissue tenderness, swelling Foot Exam: right foot: infection Neuro/Tendon Exam: normal sensation, normal motor functions Mental Status Exam: alert, oriented x 3, cooperative Skin Exam: normal color, warm, dry SpO2: 93 - Course Nursing assessment & vital signs reviewed: Yes Ordered Tests: Active Orders 24 hr Category Date Time Status BLOOD CULTURE Stat Lab 09/22/19 14:35 Received CBC W DIFF Stat Lab 09/22/19 13:59 Completed CMP Stat Lab 09/22/19 14:23 Completed Lactic Acid Stat Lab 09/22/19 13:59 Completed Medication Summary Generic Name Dose Route Start Last Admin Trade Name Freq PRN Reason Stop Dose Admin Sodium Chloride 1,000 mls @ 100 mls/hr 09/22/19 14:00 09/22/19 14:52 Sodium Chloride 0.9% 1000 Ml IV 10/22/19 13:59 100 mls/hr .Q10H LUIS Administration Discontinued Medications Generic Name Dose Route Start Last Admin Trade Name Freq PRN Reason Stop Dose Admin Ceftriaxone Sodium/Dextrose 1 g in 50 mls @ 100 mls/hr 09/22/19 13:59 Rocephin 1 Gm-D5w 50 Ml Bag IV 09/22/19 14:28 STAT STA Clindamycin HCl/Dextrose 600 mg in 50 mls @ 100 mls/hr 09/22/19 14:00 09/22/19 14:51 Clindamycin-D5w 600 Mg/50 Ml IV 09/22/19 14:29 100 mls/hr STAT STA 100 mls/hr Administration Clindamycin HCl/Dextrose Confirm 09/22/19 14:43 Clindamycin-D5w 600 Mg/50 Ml Administered 09/22/19 14:44 Dose 600 mg in 50 mls @ ud IV .STK-MED ONE Terbinafine HCl 250 mg 09/22/19 14:08 09/22/19 14:52 Lamisil 250 Mg PO 09/22/19 14:09 250 mg ONCE STA Administration Lab/Rad Data: Laboratory Result Diagrams 09/22/19 13:59 09/22/19 14:23 Laboratory Results 09/22/19 09/22/19 09/22/19 Range/Units 14:23 13:59 13:59 WBC 5.5 (4.0-10.5) K/mm3 RBC 4.76 (4.1-5.6) M/mm3 Hgb 14.7 (12.5-18.0) gm/dl Hct 47.2 (42-50) % MCV 99.2 (78-100) fl MCH 30.9 (26-32) pg MCHC 31.1 L (32-36) g/dl RDW 15.0 H (11.5-14.0) % Plt Count 205 (150-450) K/mm3 MPV 11.1 H (7.5-11.0) fl Gran % 66.9 H (36.0-66.0) % Eos # (Auto) 0.19 (0-0.5) Absolute Lymphs (auto) 0.92 L (1.0-4.6) Absolute Monos (auto) 0.68 (0.0-1.3) Lymphocytes % 16.9 L (24.0-44.0) % Monocytes % 12.5 H (0.0-12.0) % Eosinophils % 3.5 (0.00-5.0) % Basophils % 0.2 (0.0-0.4) % Absolute Granulocytes 3.65 (1.4-6.9) Basophils # 0.01 (0-0.4) Sodium 141 (137-145) mmol/L Potassium 3.5 (3.5-5.1) mmol/L Chloride 105 (98-107) mmol/L Carbon Dioxide 30 (22-30) mmol/L Anion Gap 9.9 (5-15) MEQ/L BUN 12 (9-20) mg/dL Creatinine 0.50 L (0.66-1.25) mg/dL Estimated GFR > 60.0 ML/MIN Glucose 81 (74-106) mg/dL Lactic Acid 1.2 (0.4-2.0) Calcium 9.3 (8.4-10.2) mg/dL Total Bilirubin 0.90 (0.2-1.3) mg/dL AST 17 (17-59) U/L ALT 5 (0-50) U/L Alkaline Phosphatase 74 (38-126) U/L Serum Total Protein 7.1 (6.3-8.2) g/dL Albumin 3.7 (3.5-5.0) g/dL - Progress Progress: unchanged - Departure Departure Disposition: Home Clinical Impression: Cellulitis and abscess of foot Condition: Stable Critical Care Time: No Referrals: SHAE LI MD [Primary Care Provider] - Instructions: Cellulitis (Skin Infection), Adult (DC) Prescriptions: clindamycin HCL [Cleocin HCl] 150 mg PO TID 10 Days #30 capsule Cephalexin Mh 500 mg [Keflex 500 mg] 500 mg PO TID #30 capsule Terbinafine HCl [Lamisil] 250 mg PO DAILY 30 Days #30 tablet
[2019-09-22] MEDS ORDERED: ROCEPHIN 1 Gm-D5w 50 ml Bag** 1 G/50 ML IVPB IV STA (13:59)
[2019-09-22] MEDS ORDERED: Sodium Chloride 0.9% 1000 ML 1,000 ML IV SCH (14:00)
[2019-09-22] MEDS ORDERED: CLINDAMYCIN-D5W 600 MG/50 ML*** 600 MG/50 ML BAG IV STA (14:00)
[2019-09-22] MEDS ORDERED: lamISIL 250 MG PO STA (14:08)
[2019-09-22] MEDS ORDERED: CLINDAMYCIN-D5W 600 MG/50 ML*** 600 MG/50 ML BAG IV ONE (14:43)
[2019-09-22] MEDS ORDERED: Sodium Chloride 0.9% 1000 ML 1,000 ML ONE (14:43)
[2019-09-22 14:49] LABS: Absolute Neutrophil Ct (ANC) 3.65 (1.4-6.9); BASOPHIL % 0.2 % (0.0-0.4); Basophil (Absolute #) 0.01 (0-0.4); Eosinophil % 3.5 % (0.00-5.0); Eosinophil (Absolute #) 0.19 (0-0.5); Hematocrit 47.2 % (42-50); Hemoglobin 14.7 gm/dl (12.5-18.0); Lymphocyte (Absolute #) 0.92 (1.0-4.6); Lymphocytes % 16.9 % (24.0-44.0); Mean Cell Volume 99.2 fl (78-100); Mean Corpuscular Hemoglobin 30.9 pg (26-32); Mean Corpuscular Hgb Concent. 31.1 g/dl (32-36); Mean Platelet Volume 11.1 fl (7.5-11.0); Monocyte (Absolute #) 0.68 (0.0-1.3); Monocytes % 12.5 % (0.0-12.0); Neutrophil % 66.9 % (36.0-66.0); Platelet Count 205 K/mm3 (150-450); Red Blood Count 4.76 M/mm3 (4.1-5.6); White Blood Count 5.5 K/mm3 (4.0-10.5)
[2019-09-22 14:59] LABS: ALBUMIN 3.7 g/dL (3.5-5.0); ALKALINE PHOSPHATASE 74 U/L (38-126); ANION GAP 9.9 MEQ/L (5-15); BLOOD UREA NITROGEN 12 mg/dL (9-20); CHLORIDE 105 mmol/L (98-107); Calcium 9.3 mg/dL (8.4-10.2); Carbon Dioxide 30 mmol/L (22-30); Glucose 81 mg/dL (74-106); Potassium 3.5 mmol/L (3.5-5.1); SGOT/AST 17 U/L (17-59); SODIUM 141 mmol/L (137-145); Total Protein 7.1 g/dL (6.3-8.2)
[2019-09-22 15:01] LABS: SGPT/ALT 5 U/L (0-50)
[2019-09-22] MEDS ORDERED: ROCEPHIN 1 Gm-D5w 50 ml Bag** 1 G/50 ML IVPB IV ONE (15:31)
[2019-09-22 16:04] VITALS: BP 106/77; PULSE 90; O2SAT 95
== END 2019-09-22 16:15 | disposition home or self-care (01) ==
LOC: ED 13:25
DX: I50.9 Heart failure, unspecified (principal); I73.9 Peripheral vascular disease, unspecified; Z72.0 Tobacco use
CPT/HCPCS: 36415; 80053; 83605; 85025; 87040; 96365; 96367; 99284; J0696; A9270-GY

== ENCOUNTER 2019-09-28 14:19 | Inpatient (IN) | payer MEDICARE ==
[2019-09-28 15:36] LABS: Absolute Neutrophil Ct (ANC) 4.03 (1.4-6.9); BASOPHIL % 0.2 % (0.0-0.4); Basophil (Absolute #) 0.01 (0-0.4); Eosinophil % 3.3 % (0.00-5.0); Hematocrit 50.3 % (42-50); Hemoglobin 15.3 gm/dl (12.5-18.0); Lymphocyte (Absolute #) 1.05 (1.0-4.6); Lymphocytes % 17.6 % (24.0-44.0); Mean Cell Volume 100.6 fl (78-100); Mean Corpuscular Hemoglobin 30.6 pg (26-32); Mean Corpuscular Hgb Concent. 30.4 g/dl (32-36); Mean Platelet Volume 10.4 fl (7.5-11.0); Monocyte (Absolute #) 0.69 (0.0-1.3); Monocytes % 11.5 % (0.0-12.0); Neutrophil % 67.4 % (36.0-66.0); Platelet Count 203 K/mm3 (150-450); Red Cell Distribution Width 15.1 % (11.5-14.0)
[2019-09-28 15:47] LABS: ALBUMIN 3.6 g/dL (3.5-5.0); ALKALINE PHOSPHATASE 76 U/L (38-126); ANION GAP 8.3 MEQ/L (5-15); BLOOD UREA NITROGEN 11 mg/dL (9-20); CHLORIDE 105 mmol/L (98-107); Calcium 9.1 mg/dL (8.4-10.2); Carbon Dioxide 31 mmol/L (22-30); Creatinine 1 0.56 mg/dL (0.66-1.25); Glucose 91 mg/dL (74-106); Potassium 3.7 mmol/L (3.5-5.1); SGOT/AST 14 U/L (17-59); SGPT/ALT 6 U/L (0-50); SODIUM 141 mmol/L (137-145); Total Protein 6.9 g/dL (6.3-8.2)
--- NOTE | 2019-09-28 16:31 | XRAY ---
Indication: Pain. Osteoporosis. Comparison: None 3 nonweightbearing views right foot mildly demineralized with tiny cuboid accessory ossicle and tiny plantar heel spur. No other bony, articular, or soft tissue abnormalities
[2019-09-28] MEDS ORDERED: PHARMACY DOSING REQUIRED: VANCOMYCIN IV ONE (16:41)
--- NOTE | 2019-09-28 16:51 | ERPHSYRPT ---
- History of Present Illness Time Seen by Provider: 09/28/19 14:27 Source: patient Exam Limitations: no limitations Patient Subjective Stated Complaint: pt here for sores to right foot and toes, he states been that way for a week, he was seen a week ago and was told it was athletes feet and given meds, pt was seen at PT today and had both legs wrapped for tien statis ulcers. Triage Nursing Assessment: pt alert arrived per wc, pt has post op shoe to right foot, he has sores to bottom of foot and toes, with a compression dressing to legs, Physician History: Patient is here with right foot infection. Patient has known chronic foot wounds. However, he has had increasing redness, swelling, and tenderness in his right lower leg. He has no other falls or trauma. He states that he noticed it was worse last week. Came into the ER. Placed on clindamycin as an outpatient at that point time. He has been unable to follow-up with his PCP. He states the outpatient clindamycin has not helped at all. Therefore, returns to the ER today. Increasing redness, swelling, pain. Location: right lower leg Quality: reddness, tenderness Radiation: mild Severity: moderate Duration: acute on chronic Timing: gradual Modifying factors/associated signs and symptoms: none tried Timing/Duration: week(s) Severity: moderate Allergies/Adverse Reactions: No Known Drug Allergies Allergy (Verified 09/28/19 15:07) Home Medications: Budesonide/Formoterol Fumarate [Symbicort 160-4.5 Mcg Inhaler] 2 inh IH BID 09/16/15 [History] Methylphenidate 5 mg [Ritalin 5 MG] 10 mg PO BID 09/16/15 [History] Carvedilol 3.125 mg [Coreg 3.125 MG] 3.125 mg PO BID 08/06/18 [History] Potassium Chloride 10 Meq Tab* [Klor Con 10 MEQ] 10 meq PO DAILY 08/06/18 [History] Sacubitril/Valsartan [Entresto 49 mg-51 mg Tablet] 1 each PO BID 08/06/18 [History] Hx Tetanus, Diphtheria Vaccination/Date Given: Yes (2015) Hx Influenza Vaccination/Date Given: Yes Hx Pneumococcal Vaccination/Date Given: Yes Immunizations Up to Date: Yes Travel Risk - International Travel Have you traveled outside of the country in past 3 weeks: No - Coronavirus Screening Are you exhibiting any of the following symptoms?: No Close contact with a COVID-19 positive Pt in past 14-21 Days: No - Review of Systems Constitutional: No Fever, No Chills Eyes: No Symptoms Ears, Nose, & Throat: No Symptoms Respiratory: No Cough, No Dyspnea Cardiac: No Chest Pain, No Edema, No Syncope Abdominal/Gastrointestinal: No Abdominal Pain, No Nausea, No Vomiting, No Diarrhea Genitourinary Symptoms: No Dysuria Musculoskeletal: Other (Right foot redness, tenderness, swelling), No Back Pain, No Neck Pain Skin: No Rash Neurological: No Dizziness, No Focal Weakness, No Sensory Changes Psychological: No Symptoms Endocrine: No Symptoms All Other Systems: Reviewed and Negative - Past Medical History Pertinent Past Medical History: Yes Neurological History: No Pertinent History ENT History: No Pertinent History Cardiac History: Congestive Heart Failure, Peripheral Vascular Disease Respiratory History: Bronchitis, CHF, COPD Endocrine Medical History: No Pertinent History Musculoskeletal History: No Pertinent History GI Medical History: No Pertinent History History: No Pertinent History Psycho-Social History: No Pertinent History Male Reproductive Disorders: No Pertinent History Other Medical History: PATIENT REPORTS USES CANE DUE TO POOR BALANCE. DENIES ANY NEURO ISSUES OR NEUROPATHY - Past Surgical History Past Surgical History: Yes Neuro Surgical History: No Pertinent History Cardiac: No Pertinent History Respiratory: No Pertinent History Gastrointestinal: Hernia Repair Genitourinary: No Pertinent History Musculoskeletal: No Pertinent History Male Surgical History: No Pertinent History - Social History Smoking Status: Current every day smoker How long have you smoked: 40 YEARS Exposure to second hand smoke: Yes Drug Use: none Patient Lives Alone: Yes - Nursing Vital Signs Nursing Vital Signs: Initial Vital Signs Temperature 98.4 F 09/28/19 15:00 Pulse Rate 89 09/28/19 15:00 Respiratory Rate 22 09/28/19 15:00 Blood Pressure 122/72 09/28/19 15:00 O2 Sat by Pulse Oximetry 93 L 09/28/19 15:00 Pain Scale Pain Intensity 0 - Physical Exam General Appearance: no apparent distress, alert Eye Exam: PERRL/EOMI, eyes nml inspection Ears, Nose, Throat Exam: normal ENT inspection, TMs normal, pharynx normal, moist mucous membranes Neck Exam: normal inspection, non-tender, supple, full range of motion Respiratory Exam: normal breath sounds, lungs clear, No respiratory distress Cardiovascular Exam: regular rate/rhythm, normal heart sounds, normal peripheral pulses Gastrointestinal/Abdomen Exam: soft, normal bowel sounds, No tenderness, No mass Back Exam: normal inspection, normal range of motion, No CVA tenderness, No vertebral tenderness Extremity Exam: normal inspection, normal range of motion, pelvis stable, other (Right foot does appear red, swollen, tender. Full range of motion 2+ pulses. No signs of necrotizing fasciitis) Neurologic Exam: alert, oriented x 3, cooperative, normal mood/affect, nml cerebellar function, nml station & gait, sensation nml, No motor deficits Skin Exam: normal color, warm, dry, No rash Lymphatic Exam: No adenopathy SpO2: 93 - Course Nursing assessment & vital signs reviewed: Yes - Radiology Exams Foot X-ray Interpretation: Interpreted by me, No Fracture, Nml Soft Tissues Ordered Tests: Active Orders 24 hr Category Date Time Status Code Status Order ROUTINE Care 09/28/19 16:41 Active IV Care Q6H Care 09/28/19 16:41 Active IV Insertion STAT Care 09/28/19 15:[address] in Observation ROUTINE Care 09/28/19 16:41 Active Heart-Healthy Diet Diet 09/28/19 Breakfast Active FOOT (MINIMUM 3 VIEWS) Stat Exams 09/28/19 15:44 Completed BMP AM.LAB Lab 09/29/19 04:00 Ordered CBC W DIFF AM.LAB Lab 09/29/19 04:00 Ordered CBC W DIFF Stat Lab 09/28/19 15:30 Completed CMP Stat Lab 09/28/19 15:30 Completed Lactic Acid Stat Lab 09/28/19 15:30 Completed Medication Summary Generic Name Dose Route Start Last Admin Trade Name Freq PRN Reason Stop Dose Admin Piperacillin Sod/Tazobactam 100 mls @ 200 mls/hr 09/28/19 18:00 Sod 3.375 gm/ Sodium Chloride IV 10/28/19 17:59 Q6HT LUIS Discontinued Medications Generic Name Dose Route Start Last Admin Trade Name Freq PRN Reason Stop Dose Admin Non-Formulary Medication 1 each 09/28/19 16:41 Pharmacy Dosing Required: Vancomycin IV 09/28/19 16:42 STAT ONE Lab/Rad Data: Laboratory Result Diagrams 09/28/19 15:30 09/28/19 15:30 Laboratory Results 09/28/19 09/28/19 09/28/19 Range/Units 15:30 15:30 15:30 WBC 6.0 (4.0-10.5) K/mm3 RBC 5.00 (4.1-5.6) M/mm3 Hgb 15.3 (12.5-18.0) gm/dl Hct 50.3 H (42-50) % MCV 100.6 H (78-100) fl MCH 30.6 (26-32) pg MCHC 30.4 L (32-36) g/dl RDW 15.1 H (11.5-14.0) % Plt Count 203 (150-450) K/mm3 MPV 10.4 (7.5-11.0) fl Gran % 67.4 H (36.0-66.0) % Eos # (Auto) 0.20 (0-0.5) Absolute Lymphs (auto) 1.05 (1.0-4.6) Absolute Monos (auto) 0.69 (0.0-1.3) Lymphocytes % 17.6 L (24.0-44.0) % Monocytes % 11.5 (0.0-12.0) % Eosinophils % 3.3 (0.00-5.0) % Basophils % 0.2 (0.0-0.4) % Absolute Granulocytes 4.03 (1.4-6.9) Basophils # 0.01 (0-0.4) Sodium 141 (137-145) mmol/L Potassium 3.7 (3.5-5.1) mmol/L Chloride 105 (98-107) mmol/L Carbon Dioxide 31 H (22-30) mmol/L Anion Gap 8.3 (5-15) MEQ/L BUN 11 (9-20) mg/dL Creatinine 0.56 L (0.66-1.25) mg/dL Estimated GFR > 60.0 ML/MIN Glucose 91 (74-106) mg/dL Lactic Acid 1.1 (0.4-2.0) Calcium 9.1 (8.4-10.2) mg/dL Total Bilirubin 0.90 (0.2-1.3) mg/dL AST 14 L (17-59) U/L ALT 6 (0-50) U/L Alkaline Phosphatase 76 (38-126) U/L Serum Total Protein 6.9 (6.3-8.2) g/dL Albumin 3.6 (3.5-5.0) g/dL - Progress Progress: improved Progress Note: 09/28/19 16:49 X-ray shows no obvious fractures, osteomyeitis. Patient will need be admitted for IV antibiotics given outpatient antibiotic failure. I discussed over the phone with on-call physician, Dr. Nassar. We will write for inpatient antibiotics. We will see the patient on the floor. - Departure Departure Disposition: Observation Clinical Impression: Cellulitis of foot Condition: Stable Critical Care Time: No Referrals: SHAE LI MD [Primary Care Provider] -
[2019-09-28] MEDS ORDERED: Zosyn 3.375 GM Vial IV ONE ×2 (18:31→23:39)
[2019-09-28] MEDS ORDERED: Sodium Chloride 100ML MINI-BAG PLUS 100 ML IV ONE ×2 (18:32→23:39)
[2019-09-28] MEDS: Zosyn 3.375 GM Vial 3.375 GM in Sodium Chloride 100ML MINI-BAG PLUS 100 ML IV SCH (18:43)
[2019-09-28] MEDS: VANCOMYCIN 1.5 GRAM/300 ML BAG 1.5 GM/300 ML PIGGYBACK IV SCH (19:22)
[2019-09-28] MEDS: ENTRESTO 49 MG-51 MG TABLET PO SCH (21:19)
[2019-09-28] MEDS: Coreg 3.125 MG PO SCH (21:20)
[2019-09-29] MEDS: Zosyn 3.375 GM Vial 3.375 GM in Sodium Chloride 100ML MINI-BAG PLUS 100 ML IV SCH ×5 (00:24→23:48)
[2019-09-29] MEDS ORDERED: Zosyn 3.375 GM Vial IV ONE (05:23)
[2019-09-29] MEDS ORDERED: Sodium Chloride 100ML MINI-BAG PLUS 100 ML IV ONE (05:24)
[2019-09-29 05:38] LABS: BASOPHIL % 0.3 % (0.0-0.4); Basophil (Absolute #) 0.02 (0-0.4); Eosinophil % 3.1 % (0.00-5.0); Hematocrit 48.4 % (42-50); Hemoglobin 14.5 gm/dl (12.5-18.0); Lymphocyte (Absolute #) 0.68 (1.0-4.6); Lymphocytes % 10.5 % (24.0-44.0); Mean Cell Volume 101.7 fl (78-100); Mean Corpuscular Hemoglobin 30.5 pg (26-32); Mean Platelet Volume 10.8 fl (7.5-11.0); Monocyte (Absolute #) 0.65 (0.0-1.3); Monocytes % 10.1 % (0.0-12.0); Platelet Count 198 K/mm3 (150-450); Red Blood Count 4.76 M/mm3 (4.1-5.6); White Blood Count 6.5 K/mm3 (4.0-10.5)
[2019-09-29 05:40] LABS: ANION GAP 6.3 MEQ/L (5-15); BLOOD UREA NITROGEN 11 mg/dL (9-20); CHLORIDE 108 mmol/L (98-107); Calcium 8.9 mg/dL (8.4-10.2); Carbon Dioxide 31 mmol/L (22-30); Creatinine 1 0.56 mg/dL (0.66-1.25); Glucose 110 mg/dL (74-106); Potassium 4.3 mmol/L (3.5-5.1); SODIUM 141 mmol/L (137-145)
[2019-09-29] MEDS: VANCOMYCIN 1.5 GRAM/300 ML BAG 1.5 GM/300 ML PIGGYBACK IV SCH ×2 (06:51→19:29)
[2019-09-29] MEDS: Advair Hfa 115/21 Common canister IH SCH ×2 (07:03→19:14)
[2019-09-29] MEDS: Klor Con 10 MEQ PO SCH (09:28)
[2019-09-29] MEDS: lamISIL 250 MG PO SCH (09:28)
[2019-09-29] MEDS: Coreg 3.125 MG PO SCH ×2 (09:28→22:12)
[2019-09-29] MEDS: LASIX 20 MG PO SCH (09:28)
[2019-09-29] MEDS: ENTRESTO 49 MG-51 MG TABLET PO SCH ×2 (09:28→22:12)
[2019-09-30] MEDS: Zosyn 3.375 GM Vial 3.375 GM in Sodium Chloride 100ML MINI-BAG PLUS 100 ML IV SCH ×4 (05:28→23:26)
[2019-09-30] MEDS: VANCOMYCIN 1.5 GRAM/300 ML BAG 1.5 GM/300 ML PIGGYBACK IV SCH ×2 (06:02→19:03)
[2019-09-30] MEDS: Advair Hfa 115/21 Common canister IH SCH ×2 (06:39→18:55)
[2019-09-30 07:16] LABS: Hematocrit 49.9 % (42-50); Hemoglobin 14.9 gm/dl (12.5-18.0); Mean Cell Volume 102.3 fl (78-100); Mean Corpuscular Hemoglobin 30.5 pg (26-32); Mean Corpuscular Hgb Concent. 29.9 g/dl (32-36); Mean Platelet Volume 10.5 fl (7.5-11.0); Platelet Count 190 K/mm3 (150-450); Red Blood Count 4.88 M/mm3 (4.1-5.6); Red Cell Distribution Width 14.9 % (11.5-14.0); White Blood Count 7.6 K/mm3 (4.0-10.5)
[2019-09-30 07:25] LABS: ANION GAP 7.6 MEQ/L (5-15); BLOOD UREA NITROGEN 7 mg/dL (9-20); CHLORIDE 106 mmol/L (98-107); Calcium 8.8 mg/dL (8.4-10.2); Carbon Dioxide 30 mmol/L (22-30); Creatinine 1 0.49 mg/dL (0.66-1.25); Glucose 94 mg/dL (74-106); Potassium 3.9 mmol/L (3.5-5.1); SODIUM 139 mmol/L (137-145)
[2019-09-30] MEDS: ENTRESTO 49 MG-51 MG TABLET PO SCH ×2 (09:46→21:03)
[2019-09-30] MEDS: Coreg 3.125 MG PO SCH ×2 (09:46→21:03)
[2019-09-30] MEDS: LASIX 20 MG PO SCH (09:47)
[2019-09-30] MEDS: lamISIL 250 MG PO SCH (09:47)
[2019-09-30] MEDS: Klor Con 10 MEQ PO SCH (09:47)
[2019-10-01] MEDS: Zosyn 3.375 GM Vial 3.375 GM in Sodium Chloride 100ML MINI-BAG PLUS 100 ML IV SCH ×4 (05:13→23:51)
[2019-10-01] MEDS ORDERED: TROUGH DRUG LEVELS IJ ONE (06:00)
[2019-10-01] MEDS: Advair Hfa 115/21 Common canister IH SCH ×2 (06:57→20:19)
[2019-10-01] MEDS: VANCOMYCIN 1.5 GRAM/300 ML BAG 1.5 GM/300 ML PIGGYBACK IV SCH ×2 (07:36→18:42)
--- NOTE | 2019-10-01 09:02 | PCM.NOTE ---
Date and Time: 10/01/19 0900 Subjective Assessment: patient has no complaints, when ask if his legs are improving he replies "I hope so" he denies pain, taking po Objective Exam General Appearance: no apparent distress, alert Skin Exam: other (erythema and warmth to BLE, cracked and flaking skin to feet) Wound Assessment: Skin/Wound Assessment Wound/Incision Assessment Start: 09/28/19 17:54 Text: Status: Active Freq: Q6H Protocol: Document 10/01/19 01:59 EG (Rec: 10/01/19 02:06 EG [id number]) Wound/Incision Assessment Right Lower Lateral Calf Wound Assessment Shift Assessment Wound Type Stasis Ulcer Wound Stage Stage II Wound Bed Greatest Portion Red (Granulation) Surrounding Tissue [place] Comment dry flaky skin to right lower extremity, cellulitis noted to right lower calf and extends up open area to right lateral calf,no drainage noted, foot noted to have skin sloughing off in areas, patient states he has severe athletes foot Wound Photo Photo Taken No Comment: photo on patient chart Respiratory Exam: normal breath sounds, lungs clear, No respiratory distress Cardiovascular Exam: regular rate/rhythm, normal heart sounds Gastrointestinal/Abdomen Exam: soft, No tenderness, No mass OBJECTIVE DATA Vital Signs: Vital Signs - 24 hr Temp Pulse Resp BP Pulse Ox 10/01/19 07:50 98.6 F 79 18 117/70 94 L 10/01/19 07:03 93 H 18 91 L 10/01/19 04:10 98.8 F 86 22 121/86 93 L 09/30/19 23:54 99.2 F 51 L 18 117/60 94 L 09/30/19 19:48 98.5 F 93 H 20 130/86 95 09/30/19 18:55 100 H 18 93 L 09/30/19 15:57 98.1 F 95 H 18 123/86 97 09/30/19 11:44 98.6 F 87 18 124/77 96 Pain Assessment - Last Documented Pain Intensity 0 Pain Scale Used 0-10 Pain Scale Intake and Output: Intake & Output 09/28/19 09/29/19 09/30/19 10/01/19 11:59 11:59 11:59 11:59 Intake Total 1087 1775 1995 Output Total 662 722 0241 Balance 387 1075 -1054 Weight 98.2 kg 98.2 kg Lab Results: Lab Results-Last 24 Hours 10/01/19 Range/Units 06:05 Vancomycin Trough 12.79 (10-20) ug/mL Assessment/Plan (1) Bilateral cellulitis of lower leg Current Visit: No Status: Acute Assessment & Plan: continue vanc/zosyn, no evidence of osteo on xray, MRI was ordered, will check ESR as well. Code(s): L03.116 - CELLULITIS OF LEFT LOWER LIMB; L03.115 - CELLULITIS OF RIGHT LOWER LIMB
[2019-10-01] MEDS: ENTRESTO 49 MG-51 MG TABLET PO SCH ×2 (09:53→20:49)
[2019-10-01] MEDS: LASIX 20 MG PO SCH (09:53)
[2019-10-01] MEDS: Klor Con 10 MEQ PO SCH (09:53)
[2019-10-01] MEDS: lamISIL 250 MG PO SCH (09:53)
[2019-10-01] MEDS: Coreg 3.125 MG PO SCH ×2 (09:53→20:49)
[2019-10-02] MEDS: Zosyn 3.375 GM Vial 3.375 GM in Sodium Chloride 100ML MINI-BAG PLUS 100 ML IV SCH ×4 (05:04→23:20)
[2019-10-02 05:17] LABS: Absolute Neutrophil Ct (ANC) 5.05 (1.4-6.9); BASOPHIL % 0.4 % (0.0-0.4); Basophil (Absolute #) 0.03 (0-0.4); Eosinophil % 6.9 % (0.00-5.0); Eosinophil (Absolute #) 0.52 (0-0.5); Hematocrit 53.1 % (42-50); Hemoglobin 15.9 gm/dl (12.5-18.0); Lymphocyte (Absolute #) 0.92 (1.0-4.6); Lymphocytes % 12.3 % (24.0-44.0); Mean Cell Volume 101.1 fl (78-100); Mean Corpuscular Hemoglobin 30.3 pg (26-32); Mean Corpuscular Hgb Concent. 29.9 g/dl (32-36); Mean Platelet Volume 10.1 fl (7.5-11.0); Monocyte (Absolute #) 0.97 (0.0-1.3); Neutrophil % 67.4 % (36.0-66.0); Platelet Count 186 K/mm3 (150-450); Red Blood Count 5.25 M/mm3 (4.1-5.6); Red Cell Distribution Width 14.6 % (11.5-14.0); White Blood Count 7.5 K/mm3 (4.0-10.5)
[2019-10-02] MEDS: VANCOMYCIN 1.5 GRAM/300 ML BAG 1.5 GM/300 ML PIGGYBACK IV SCH ×2 (05:35→17:59)
[2019-10-02 05:41] LABS: ALBUMIN 3.4 g/dL (3.5-5.0); ALKALINE PHOSPHATASE 62 U/L (38-126); ANION GAP 8.5 MEQ/L (5-15); BLOOD UREA NITROGEN 12 mg/dL (9-20); CHLORIDE 103 mmol/L (98-107); Calcium 9.4 mg/dL (8.4-10.2); Carbon Dioxide 34 mmol/L (22-30); Creatinine 1 0.51 mg/dL (0.66-1.25); Glucose 94 mg/dL (74-106); Potassium 4.2 mmol/L (3.5-5.1); SGOT/AST 15 U/L (17-59); SODIUM 141 mmol/L (137-145); Total Protein 6.8 g/dL (6.3-8.2)
[2019-10-02 05:51] LABS: SGPT/ALT 4 U/L (0-50)
[2019-10-02] MEDS: Advair Hfa 115/21 Common canister IH SCH ×2 (06:51→18:58)
--- NOTE | 2019-10-02 08:18 | PCM.NOTE ---
Date and Time: 10/02/19814 Subjective Assessment: pt sleeping, he wakes up but is not very conversant on questioning. denies pain, states he is "not too keen on the idea" when discussing rehab stay for wound care etc. plans to return to home Objective Exam General Appearance: no apparent distress Neurologic Exam: alert, oriented x 3 Wound Assessment: Skin/Wound Assessment Wound/Incision Assessment Start: 09/28/19 17:54 Text: Status: Active Freq: Q6H Protocol: Document 10/02/19 02:00 EG (Rec: 10/02/19 03:02 EG [id number]) Wound/Incision Assessment Right Lower Lateral Calf Wound Assessment Shift Assessment Wound Type Stasis Ulcer Wound Stage Stage II Wound Bed Greatest Portion Red (Granulation) Surrounding Tissue [place] Comment dry flaky skin to right lower extremity, cellulitis/redness/ swelling noted to right lower calf and extends up open area to right lateral calf,no drainage noted, foot noted to have skin sloughing off in areas. remains true Wound Photo Photo Taken No Comment: photo on patient chart Respiratory Exam: normal breath sounds, lungs clear, No respiratory distress Cardiovascular Exam: regular rate/rhythm, normal heart sounds Gastrointestinal/Abdomen Exam: soft, No tenderness, No mass Extremity Exam: other (mild erythema to lower extremities, flaking to right foot) OBJECTIVE DATA Vital Signs: Vital Signs - 24 hr Temp Pulse Resp BP Pulse Ox 10/02/19 07:37 98.2 F 79 18 120/86 92 L 10/02/19 06:52 79 18 92 L 10/02/19 04:00 97.9 F 86 20 140/87 93 L 10/01/19 23:37 98.8 F 88 20 126/78 96 10/01/19 20:22 70 20 93 L 10/01/19 19:52 98.4 F 90 20 129/83 95 10/01/19 16:00 98.9 F 81 20 112/78 93 L 10/01/19 12:00 98.8 F 94 H 20 115/72 91 L Pain Assessment - Last Documented Pain Intensity 0 Pain Scale Used 0-10 Pain Scale Intake and Output: Intake & Output 09/29/19 09/30/19 10/01/19 10/02/19 11:59 11:59 11:59 11:59 Intake Total 1087 1775 1995 1620 Output Total 504 059 4536 1650 Balance 387 1075 -1054 -30 Weight 98.2 kg 98.2 kg Lab Results: Lab Results-Last 24 Hours 10/02/19 10/02/19 Range/Units 04:55 04:55 WBC 7.5 (4.0-10.5) K/mm3 RBC 5.25 (4.1-5.6) M/mm3 Hgb 15.9 (12.5-18.0) gm/dl Hct 53.1 H (42-50) % MCV 101.1 H (78-100) fl MCH 30.3 (26-32) pg MCHC 29.9 L (32-36) g/dl RDW 14.6 H (11.5-14.0) % Plt Count 186 (150-450) K/mm3 MPV 10.1 (7.5-11.0) fl Gran % 67.4 H (36.0-66.0) % Eos # (Auto) 0.52 H (0-0.5) Absolute Lymphs (auto) 0.92 L (1.0-4.6) Absolute Monos (auto) 0.97 (0.0-1.3) Lymphocytes % 12.3 L (24.0-44.0) % Monocytes % 13.0 H (0.0-12.0) % Eosinophils % 6.9 H (0.00-5.0) % Basophils % 0.4 (0.0-0.4) % Absolute Granulocytes 5.05 (1.4-6.9) Basophils # 0.03 (0-0.4) ESR Pending Sodium 141 (137-145) mmol/L Potassium 4.2 (3.5-5.1) mmol/L Chloride 103 (98-107) mmol/L Carbon Dioxide 34 H (22-30) mmol/L Anion Gap 8.5 (5-15) MEQ/L BUN 12 (9-20) mg/dL Creatinine 0.51 L (0.66-1.25) mg/dL Estimated GFR > 60.0 ML/MIN Glucose 94 (74-106) mg/dL Calcium 9.4 (8.4-10.2) mg/dL Total Bilirubin 0.70 (0.2-1.3) mg/dL AST 15 L (17-59) U/L ALT 4 (0-50) U/L Alkaline Phosphatase 62 (38-126) U/L Serum Total Protein 6.8 (6.3-8.2) g/dL Albumin 3.4 L (3.5-5.0) g/dL Multi-Disciplinary Progress Notes: Multi-Disciplinary Progress Notes 10/01/19 09:08 Pharmacy Note by Kvng Portillo Vancomycin trough = 12.79. Continue current dose 1.5 gm q12h viktoria Initialized on 10/01/19 09:08 - END OF NOTE Assessment/Plan (1) Bilateral cellulitis of lower leg Current Visit: No Status: Acute Assessment & Plan: on vanc/zosyn, continue PT. Code(s): L03.116 - CELLULITIS OF LEFT LOWER LIMB; L03.115 - CELLULITIS OF RIGHT LOWER LIMB
[2019-10-02] MEDS: Coreg 3.125 MG PO SCH ×2 (10:23→22:03)
[2019-10-02] MEDS: ENTRESTO 49 MG-51 MG TABLET PO SCH ×2 (10:23→22:03)
[2019-10-02] MEDS: Klor Con 10 MEQ PO SCH (10:23)
[2019-10-02] MEDS: lamISIL 250 MG PO SCH (10:23)
[2019-10-02] MEDS: LASIX 20 MG PO SCH (10:23)
[2019-10-02 10:50] LABS: Erythrocyte Sedimentation Rate 4 mm/hr (0-15)
[2019-10-02] MEDS ORDERED: NORCO 5/325 MG PO PRN (13:29)
[2019-10-02] MEDS ORDERED: Zofran 4 MG/2 ML VIAL IV PRN (13:29)
[2019-10-02] MEDS ORDERED: MORPHINE SULFATE 4 MG INJ IV PRN (13:29)
[2019-10-03 05:24] LABS: Hematocrit 51.5 % (42-50); Hemoglobin 15.4 gm/dl (12.5-18.0); Mean Cell Volume 101.4 fl (78-100); Mean Corpuscular Hemoglobin 30.3 pg (26-32); Mean Corpuscular Hgb Concent. 29.9 g/dl (32-36); Mean Platelet Volume 10.8 fl (7.5-11.0); Platelet Count 197 K/mm3 (150-450); Red Blood Count 5.08 M/mm3 (4.1-5.6); Red Cell Distribution Width 14.8 % (11.5-14.0)
[2019-10-03] MEDS: Zosyn 3.375 GM Vial 3.375 GM in Sodium Chloride 100ML MINI-BAG PLUS 100 ML IV SCH ×2 (05:28→11:55)
[2019-10-03 05:31] LABS: ANION GAP 6.9 MEQ/L (5-15); BLOOD UREA NITROGEN 21 mg/dL (9-20); CHLORIDE 104 mmol/L (98-107); Calcium 9.4 mg/dL (8.4-10.2); Carbon Dioxide 32 mmol/L (22-30); Creatinine 1 0.52 mg/dL (0.66-1.25); Glucose 97 mg/dL (74-106); Potassium 4.1 mmol/L (3.5-5.1); SODIUM 139 mmol/L (137-145)
[2019-10-03] MEDS: VANCOMYCIN 1.5 GRAM/300 ML BAG 1.5 GM/300 ML PIGGYBACK IV SCH (05:57)
[2019-10-03] MEDS: Advair Hfa 115/21 Common canister IH SCH (07:33)
--- NOTE | 2019-10-03 08:10 | PCM.DS ---
Discharge Summary Date of Admission: 09/29/19 08:30 Admitting Physician: LUCIANO GUO Primary Care Provider: SHAE LI Allergies Allergies No Known Drug Allergies Allergy (Verified 09/28/19 15:07) Hospital Summary - Hospital Course Hospital Course: patient was admitted with lower extremity cellulitis, treated with vanc and zosyn, improved. he refuses home health or rehab stay, states he can care for himself at home. declines any assistance at discharge - Vitals & Intake/Output Vital Signs: Vital Signs Temperature 98.4 F 10/03/19 04:00 Pulse Rate 80 10/03/19 07:34 Respiratory Rate 16 10/03/19 07:34 Blood Pressure 106/73 10/03/19 04:00 O2 Sat by Pulse Oximetry 91 L 10/03/19 07:34 Intake & Output: Intake & Output 09/30/19 10/01/19 10/02/19 10/03/19 11:59 11:59 11:59 11:59 Intake Total 1775 7708 1620 480 Output Total 700 1604 1650 1725 Balance 1075 -1054 -30 -1245 Weight 98.2 kg 98.2 kg - Lab Result Diagrams: 10/03/19 04:57 10/03/19 04:57 Lab Results-Last 24 Hrs: Lab Results-Last 24 Hours 10/02/19 10/03/19 10/03/19 Range/Units 04:55 04:57 04:57 WBC 7.0 (4.0-10.5) K/mm3 RBC 5.08 (4.1-5.6) M/mm3 Hgb 15.4 (12.5-18.0) gm/dl Hct 51.5 H (42-50) % MCV 101.4 H (78-100) fl MCH 30.3 (26-32) pg MCHC 29.9 L (32-36) g/dl RDW 14.8 H (11.5-14.0) % Plt Count 197 (150-450) K/mm3 MPV 10.8 (7.5-11.0) fl ESR 4 (0-15) mm/hr Sodium 139 (137-145) mmol/L Potassium 4.1 (3.5-5.1) mmol/L Chloride 104 (98-107) mmol/L Carbon Dioxide 32 H (22-30) mmol/L Anion Gap 6.9 (5-15) MEQ/L BUN 21 H (9-20) mg/dL Creatinine 0.52 L (0.66-1.25) mg/dL Estimated GFR > 60.0 ML/MIN Glucose 97 (74-106) mg/dL Calcium 9.4 (8.4-10.2) mg/dL - Procedures and Test Procedures and Tests throughout Hospitalization: Therapy Orders & Screens 09/28/19 18:26 PT Screen per Nursing Assess ONCE Comment: Protocol Order Physician Instructions: Greater than 3 points order PT Admission Screenin Reason For Exam: Triggered on Admission Diagnosis: cellulitis RLE Open Wound/Cellutlitis/Pressure Ulcers: Yes Acute Fx/ORIF/Change in wt bearing status: No Severe MUSCULOSKELETAL pain: No ADL Dysfunction: Yes Acute CVA w/Hemiparesis/Hemiplegia: No Decreased Functional Mobility/Strength: Yes Sprain/Strain: No Acute Post-op Mobility Dysfunction: No Total Points: 9 09/28/19 23:30 Oxygen Nasal Cannula 2 lpm Comment: Diagnosis: cellulitis RLE 09/29/19 05:43 Respiratory Therapy Assessment DAILY Comment: Diagnosis: cellulitis RLE 09/29/19 09:00 PT Eval & Treat (MD Order) ROUTINE Reason for Eval:: wound care Diagnosis: cellulitis RLE 10/02/19 08:17 PT Eval & Treat (MD Order) ROUTINE Reason for Eval:: skin/wound care Diagnosis: CELLULITIS RLE Discharge Exam General Appearance: no apparent distress Respiratory Exam: normal breath sounds, lungs clear, No respiratory distress Cardiovascular Exam: regular rate/rhythm, normal heart sounds Extremity Exam: other (chronic lower extremity venous stasis changes, erythema to RLE improved. sloughing/dry scaly skin to right foot) Wound Assessment: Skin/Wound Assessment Wound/Incision Assessment Start: 09/28/19 17:54 Text: Status: Active Freq: Q6H Protocol: Document 10/03/19 02:00 ST (Rec: 10/03/19 03:07 ST [id number]) Wound/Incision Assessment Right Lower Lateral Calf Wound Assessment Shift Assessment Wound Type Stasis Ulcer Wound Stage Stage II Wound Bed Greatest Portion Red (Granulation) Surrounding Tissue Thayne Wound Photo Photo Taken No Comment: photo on patient chart Final Diagnosis/Problem List - Final Discharge Diagnosis/Problem (1) Bilateral cellulitis of lower leg Current Visit: No Status: Acute Assessment & Plan: home on po clindamycin, f/u in office. Code(s): L03.116 - CELLULITIS OF LEFT LOWER LIMB; L03.115 - CELLULITIS OF RIGHT LOWER LIMB - Discharge Disposition: Home, Self-Care Condition: Stable Prescriptions: Continue Budesonide/Formoterol Fumarate [Symbicort 160-4.5 Mcg Inhaler] 2 inh IH BID Carvedilol 3.125 mg [Coreg 3.125 MG] 3.125 mg PO BID Potassium Chloride 10 Meq Tab* [Klor Con 10 MEQ] 10 meq PO DAILY Sacubitril/Valsartan [Entresto 49 mg-51 mg Tablet] 1 each PO BID Cephalexin Mh 500 mg [Keflex 500 mg] 500 mg PO TID #30 capsule Terbinafine HCl [Lamisil] 250 mg PO DAILY 30 Days #30 tablet Furosemide 20 mg [Lasix 20 mg] 20 mg PO DAILY clindamycin HCL [Cleocin HCl] 150 mg PO TID 10 Days #30 capsule Follow up with: SHAE LI MD [Primary Care Provider] - 1 Week
[2019-10-03] MEDS: LASIX 20 MG PO SCH (08:51)
[2019-10-03] MEDS: Klor Con 10 MEQ PO SCH (08:52)
[2019-10-03] MEDS: lamISIL 250 MG PO SCH (08:52)
[2019-10-03] MEDS: ENTRESTO 49 MG-51 MG TABLET PO SCH (08:52)
[2019-10-03] MEDS: Coreg 3.125 MG PO SCH (08:52)
[2019-10-03 11:54] VITALS: BP 106/71; PULSE 66; O2SAT 93
== END 2019-10-03 13:25 | disposition home or self-care (01) | DRG 603 ==
LOC: ED 14:19 → MED SURG 17:46 → OBSVTOIN 09-29 08:30
PROVIDERS: ADMIT Family Medicine; ATTEND Family Medicine
DX: L03.116 Cellulitis of left lower limb (principal); L03.115 Cellulitis of right lower limb; Z79.899 Other long term (current) drug therapy
CPT/HCPCS: 36415; 73630; 80048; 80053; 80202; 83605; 84134; 85025; 85027; 85652; 94640; 94760; 97161; 97597; 97598; 99285; G0378; A9270-GY; J3370

== ENCOUNTER 2020-01-31 09:53 | Emergency (ER) | payer MEDICARE ==
[2020-01-31 10:07] VITALS: O2SAT 95
--- NOTE | 2020-01-31 10:13 | ERPHSYRPT ---
- History of Present Illness Time Seen by Provider: 01/31/20 10:05 Source: patient Exam Limitations: no limitations Patient Subjective Stated Complaint: Pt states "I was at Dr Patel yesterday and he told me I need to come and get antibiotic for my lower left leg. Triage Nursing Assessment: Pt presented alert and oriented X 3, skin wpd pt ambulates with a cane, hunched over slow limping gait, pt has walking boot on his left foot, pt lower legs wrapped up. PT left lower extremety has celluitis which pt is taking oral antibiotics for. Physician History: Patient has a chronic stasis on both the legs for many years. He states that he gets a flareup of her cellulitis every few months. Came to the ER for worsening redness and erythema on the left lower leg. Patient is already taking ciprofloxacin and clindamycin. Patient denies any pain or fever. Timing/Duration: day(s) (3) Severity: moderate Modifying Factors: Worsens With: eating, immobilization, medication, movement Associated Symptoms: No nausea, No vomiting, No abdominal pain, No shortness of breath, No heartburn, No diaphoresis Allergies/Adverse Reactions: No Known Drug Allergies Allergy (Verified 09/28/19 15:07) Home Medications: Budesonide/Formoterol Fumarate [Symbicort 160-4.5 Mcg Inhaler] 2 inh IH BID 09/16/15 [History] Carvedilol 3.125 mg [Coreg 3.125 MG] 3.125 mg PO BID 08/06/18 [History] Potassium Chloride 10 Meq Tab* [Klor Con 10 MEQ] 10 meq PO DAILY 08/06/18 [History] Sacubitril/Valsartan [Entresto 49 mg-51 mg Tablet] 1 each PO BID 08/06/18 [History] Furosemide 20 mg [Lasix 20 mg] 20 mg PO DAILY 09/28/19 [History] Ciprofloxacin HCl [Cipro] 250 mg PO DAILY 01/31/20 [History] Hx Tetanus, Diphtheria Vaccination/Date Given: Yes Hx Influenza Vaccination/Date Given: Yes Hx Pneumococcal Vaccination/Date Given: Yes Immunizations Up to Date: Yes Travel Risk - International Travel Have you traveled outside of the country in past 3 weeks: No - Coronavirus Screening Are you exhibiting any of the following symptoms?: No Close contact with a COVID-19 positive Pt in past 14-21 Days: No - Review of Systems Constitutional: No Fever, No Chills Eyes: No Symptoms Ears, Nose, & Throat: No Symptoms Respiratory: No Cough, No Dyspnea Cardiac: No Chest Pain, No Edema, No Syncope Abdominal/Gastrointestinal: No Abdominal Pain, No Nausea, No Vomiting, No Diarrhea Genitourinary Symptoms: No Dysuria Musculoskeletal: Other (Left lower leg cellulitis), No Back Pain, No Neck Pain Skin: Other (Left lower leg cellulitis), No Rash Neurological: No Dizziness, No Focal Weakness, No Sensory Changes Psychological: No Symptoms Endocrine: No Symptoms All Other Systems: Reviewed and Negative - Past Medical History Pertinent Past Medical History: Yes Neurological History: No Pertinent History ENT History: No Pertinent History Cardiac History: Congestive Heart Failure, Peripheral Vascular Disease Respiratory History: Bronchitis, CHF, COPD Endocrine Medical History: No Pertinent History Musculoskeletal History: No Pertinent History GI Medical History: No Pertinent History History: No Pertinent History Psycho-Social History: No Pertinent History Male Reproductive Disorders: No Pertinent History Other Medical History: PATIENT REPORTS USES CANE DUE TO POOR BALANCE. DENIES ANY NEURO ISSUES OR NEUROPATHY - Past Surgical History Past Surgical History: Yes Neuro Surgical History: No Pertinent History Cardiac: No Pertinent History Respiratory: No Pertinent History Gastrointestinal: Hernia Repair Genitourinary: No Pertinent History Musculoskeletal: No Pertinent History Male Surgical History: No Pertinent History - Social History Smoking Status: Current every day smoker How long have you smoked: years Exposure to second hand smoke: Yes Drug Use: none Patient Lives Alone: Yes - Nursing Vital Signs Nursing Vital Signs: Initial Vital Signs Temperature 98.9 F 01/31/20 10:02 Pulse Rate 72 01/31/20 10:02 Respiratory Rate 20 01/31/20 10:02 Blood Pressure 128/69 01/31/20 10:02 O2 Sat by Pulse Oximetry 95 01/31/20 10:02 Pain Scale Pain Intensity 0 - Physical Exam General Appearance: no apparent distress, alert Eye Exam: PERRL/EOMI, eyes nml inspection Ears, Nose, Throat Exam: normal ENT inspection, TMs normal, pharynx normal, moist mucous membranes Neck Exam: normal inspection, non-tender, supple, full range of motion Respiratory Exam: normal breath sounds, lungs clear, No respiratory distress Cardiovascular Exam: regular rate/rhythm, normal heart sounds, normal peripheral pulses Gastrointestinal/Abdomen Exam: soft, normal bowel sounds, No tenderness, No mass Back Exam: normal inspection, normal range of motion, No CVA tenderness, No vertebral tenderness Extremity Exam: normal inspection, normal range of motion, pelvis stable, other (Left lower leg cellulitis, chronic stasis changes seen both lower leg) Neurologic Exam: alert, oriented x 3, cooperative, normal mood/affect, nml cerebellar function, nml station & gait, sensation nml, No motor deficits Skin Exam: normal color, warm, dry, No rash Lymphatic Exam: No adenopathy SpO2 Interpretation: normal SpO2: 95 O2 Delivery: Room Air - Course Nursing assessment & vital signs reviewed: Yes - Progress Progress: unchanged (D/W Dr Diego, He told me to admit under hospitalist for PICC line and IV ABx. ) Progress Note: 01/31/20 10:[address] Patel about this patient and he was going to talk to Dr. Powell for the admission. Patient refused admission stating that he has a lot of things to take care of before the winter sets in. I explained him that he has failed outpatient antibiotic and we need to give him some IV antibiotic. Patient is afebrile, nontoxic. Patient is alert and oriented and competent to make the decision. He is leaving AMA. I discussed with Dr. Patel about the antibiotic and we both decided to change the antibiotics from Cipro and clindamycin to Doxy and Bactrim. I explained this to the patient he understood and agreed with the plan. Patient is leaving AMA. Discussed with Dr.: Other (Called Dr Diego. Will call me back) - Departure Departure Disposition: AMA Clinical Impression: Bilateral cellulitis of lower leg Condition: Stable Critical Care Time: No Referrals: COLIN BENITEZ [Primary Care Provider] - Follow Up with PCP/3 days Instructions: Cellulitis (Skin Infection), Adult (DC) Additional Instructions: Ciprofloxacin and clindamycin and start doxycycline and Bactrim as prescribed Prescriptions: Smz/Tmp Ds Tablet [Bactrim Ds Tablet] 1 udtab PO BID #14 tablet Doxycycline Hyclate 100 mg [Vibramycin 100 MG] 100 mg PO BID #14 tab
[2020-01-31 10:45] VITALS: BP 110/69; PULSE 86
== END 2020-01-31 11:05 | disposition left against medical advice (07) ==
LOC: ED 09:53
DX: L03.116 Cellulitis of left lower limb (principal); L03.115 Cellulitis of right lower limb; J44.9 Chronic obstructive pulmonary disease, unspecified; I73.9 Peripheral vascular disease, unspecified; Z79.899 Other long term (current) drug therapy
CPT/HCPCS: 99283

== ENCOUNTER 2021-07-16 17:40 | Inpatient (IN) | payer MEDICARE ==
[2021-07-16 18:36] LABS: Absolute Neutrophil Ct (ANC) 5.37 (1.4-6.9); Basophil (Absolute #) 0.02 (0-0.4); Eosinophil % 0.3 % (0.00-5.0); Eosinophil (Absolute #) 0.02 (0-0.5); Hematocrit 47.7 % (42-50); Hemoglobin 13.3 gm/dl (12.5-18.0); Lymphocyte (Absolute #) 0.57 (1.0-4.6); Lymphocytes % 8.3 % (24.0-44.0); Mean Corpuscular Hemoglobin 25.4 pg (26-32); Mean Corpuscular Hgb Concent. 27.9 g/dl (32-36); Mean Platelet Volume 11.4 fl (7.5-11.0); Monocytes % 13.1 % (0.0-12.0); Platelet Count 197 K/mm3 (150-450); Red Blood Count 5.24 M/mm3 (4.1-5.6); Red Cell Distribution Width 17.7 % (11.5-14.0); White Blood Count 6.9 K/mm3 (4.0-10.5)
[2021-07-16] MEDS ORDERED: ROCEPHIN 2 Gm-D5w 50ML BAG** 2 G/50 ML IVPB IV STA (18:46)
[2021-07-16] MEDS ORDERED: Zithromax 500 MG/ 250 ML NaCl Premix 500 MG/250 ML IVPB IV STA (18:46)
[2021-07-16] MEDS ORDERED: DUONEB 0.5-3 MG/3 ml Neb IH ONE ×2 (18:49→18:54)
[2021-07-16] MEDS ORDERED: solu-MEDROL 125 MG, Sterile H2O 10 ml 2 ML IV ONE ×2 (18:49)
--- NOTE | 2021-07-16 18:56 | ERPHSYRPT ---
- History of Present Illness Time Seen by Provider: 07/16/21 17:50 Source: patient Exam Limitations: no limitations Patient Subjective Stated Complaint: shortness of breath Triage Nursing Assessment: pt arrived to ed via ambulance, pt moved to bed with assistance, pt is alert and oriented x 3, denies any pain, short of breath. pt states has been having shortness of breath for the last couple of weeks, was watching tv and breathing became worse and called ems, wears 2L of O2 at home, expiratory wheezes heard anterior, diminished lung sounds posterior, pt denies any fever, non productive cough. Physician History: Patient is a 61-year-old male with history of COPD presents to our ED via EMS for evaluation of progressive shortness of breath. Patient states he has been experiencing progressive shortness of breath for the past 2 weeks. However the shortness of breath has gotten worse over the past 2 days. No chest pain. Patient wears 2 L nasal cannula 24 hours/day. No nausea vomiting or diaphoresis. No fever. Patient admits to a dry cough.Symptoms are mild to moderate in intensity. Exertion worsens symptoms. Pain improved with rest.Patient voices no other complaints or concerns at this time Timing/Duration: week(s) (2 weeks but significantly worse over the past 2 days.) Activities at Onset: activity Severity of Dyspnea-Max: moderate Severity of Dyspnea-Current: moderate Possible Cause: occasional episodes Modifying Factors: Improves With: albuterol inhaler, other (Patient received a DuoNeb prior to arrival. Patient states that this improve the symptomology.) Associated Symptoms: cough (Dry cough) Allergies/Adverse Reactions: No Known Drug Allergies Allergy (Verified 07/16/21 19:02) Home Medications: Sacubitril/Valsartan [Entresto 49 mg-51 mg Tablet] 1 each PO BID 08/06/18 [History] Furosemide 20 mg [Lasix 20 mg] 20 mg PO DAILY 09/28/19 [History] Ciprofloxacin HCl [Cipro] 500 mg PO Q12H 01/31/20 [History] Prednisone 10 mg [Deltasone 10 mg] 10 mg PO DAILY 07/16/21 [History] Tamsulosin HCl 0.4 mg [Flomax 0.4 MG] 0.4 mg PO DAILY 07/16/21 [History] Hx Tetanus, Diphtheria Vaccination/Date Given: Yes Hx Influenza Vaccination/Date Given: Yes Hx Pneumococcal Vaccination/Date Given: Yes Travel Risk - International Travel Have you traveled outside of the country in past 3 weeks: No - Coronavirus Screening Are you exhibiting any of the following symptoms?: Yes Symptoms: Shortness of Breath Close contact with a COVID-19 positive Pt in past 14-21 Days: No - Vaccine Status Have you recieved a Covid-19 vaccination: Yes [employer]: Moderna - Vaccination Dates Date of 2cond Vaccination (if applicable): unknown Dates if Unknown: unknown - Review of Systems Constitutional: No Symptoms, No Fever, No Chills Eyes: No Symptoms Ears, Nose, & Throat: No Symptoms Respiratory: No Symptoms, No Cough, No Dyspnea Cardiac: No Symptoms, No Chest Pain, No Edema, No Syncope Abdominal/Gastrointestinal: No Symptoms, No Abdominal Pain, No Nausea, No Vomiting, No Diarrhea Genitourinary Symptoms: No Symptoms, No Dysuria Musculoskeletal: No Symptoms, No Back Pain, No Neck Pain Skin: No Symptoms, No Rash Neurological: No Symptoms, No Dizziness, No Focal Weakness, No Sensory Changes Psychological: No Symptoms Endocrine: No Symptoms Hematologic/Lymphatic: No Symptoms Immunological/Allergic: No Symptoms All Other Systems: Reviewed and Negative - Past Medical History Pertinent Past Medical History: Yes Neurological History: No Pertinent History ENT History: No Pertinent History Cardiac History: Congestive Heart Failure, Peripheral Vascular Disease Respiratory History: Bronchitis, CHF, COPD Endocrine Medical History: No Pertinent History Musculoskeletal History: No Pertinent History GI Medical History: No Pertinent History History: No Pertinent History Psycho-Social History: No Pertinent History Male Reproductive Disorders: No Pertinent History Other Medical History: PATIENT REPORTS USES CANE DUE TO POOR BALANCE. DENIES ANY NEURO ISSUES OR NEUROPATHY, cellulitis lower legs - Past Surgical History Past Surgical History: Yes Neuro Surgical History: No Pertinent History Cardiac: No Pertinent History Respiratory: No Pertinent History Gastrointestinal: Hernia Repair Genitourinary: No Pertinent History Musculoskeletal: No Pertinent History Male Surgical History: No Pertinent History - Social History Smoking Status: Current every day smoker How long have you smoked: 40 years Exposure to second hand smoke: No Drug Use: none Patient Lives Alone: Yes - Nursing Vital Signs Nursing Vital Signs: Initial Vital Signs Temperature 98.2 F 07/16/21 17:43 Pulse Rate 106 H 07/16/21 17:43 Respiratory Rate 24 07/16/21 17:43 Blood Pressure 121/77 07/16/21 17:43 O2 Sat by Pulse Oximetry 91 L 07/16/21 17:43 Pain Scale Pain Intensity 0 - Physical Exam General Appearance: no apparent distress, alert Eye Exam: PERRL/EOMI Ears, Nose, Throat Exam: hearing grossly normal, normal ENT inspection, normal pharynx Neck Exam: normal inspection, supple, full range of motion, No non-tender Respiratory Exam: diminished breath sounds, rhonchi, wheezing, No respiratory distress Cardiovascular/Chest Exam: normal heart sounds, regular rate/rhythm Abdominal/Gastrointestinal Exam: soft, No tenderness, No distention, No mass Extremity Exam: non-tender, normal range of motion, normal inspection, no calf tenderness, no pedal edema, swelling (2+ pitting edema bilateral lower extremity) Peripheral Pulses Exam: dorsalis-pedis (R): 2+, dorsalis-pedis (L): 2+ Neurologic Exam: alert, oriented x 3, cooperative, commodity management specialist II-XII nml as tested, sensation nml, No motor deficits Skin Exam: normal color, warm, No dry Lymphatic Exam: No adenopathy SpO2 Interpretation: normal SpO2: 89 O2 Delivery: Room Air - Course Nursing assessment & vital signs reviewed: Yes EKG Interpreted by Me: Sinus Tach, NORMAL AXIS, NORMAL INTERVALS, Right Bundle Branch Block - Radiology Exams Chest X-ray Interpretation: Interpreted by me (Right pleural effusion, borderline cardiomegaly, pulmonary congestion) Ordered Tests: Active Orders 24 hr Category Date Time Status Survey Workers Supervisor STAT Care 07/16/21 18:08 Active EKG-ER Only STAT Care 07/16/21 18:02 Active IV Insertion STAT Care 07/16/21 18:02 Active Pulse Oximetry (ED) STAT Care 07/16/21 18:02 Active CHEST 1 VIEW (PORTABLE) Stat Exams 07/16/21 18:43 Taken CBC W DIFF Stat Lab 07/16/21 18:25 Completed CMP Stat Lab 07/16/21 18:25 Completed MAGNESIUM Stat Lab 07/16/21 18:25 Completed NT PRO BNP Stat Lab 07/16/21 18:25 Completed TROPONIN Q3H Lab 07/16/21 18:25 Completed TROPONIN Q3H Lab 07/16/21 21:15 Ordered TROPONIN Q3H Lab 07/17/21 00:15 Ordered TROPONIN Q3H Lab 07/17/21 03:15 Ordered TROPONIN Q3H Lab 07/17/21 06:15 Ordered Respiratory Therapy Assessment DAILY RT 07/16/21 19:41 Active Transfer Order Routine Transfer 07/16/21 Ordered Medication Summary Discontinued Medications Generic Name Dose Route Start Last Admin Trade Name Freq PRN Reason Stop Dose Admin Albuterol/Ipratropium 3 ml 07/16/21 18:49 07/16/21 19:24 Ipratropium/Albuterol Sulfate 3 Ml Ampul.Neb IH 07/16/21 18:50 3 ml STAT ONE Administration Albuterol/Ipratropium Confirm 07/16/21 18:54 Ipratropium/Albuterol Sulfate 3 Ml Ampul.Neb Administered 07/16/21 18:55 Dose 3 ml IH .STK-MED ONE Methylprednisolone Sodium 0 mg 07/16/21 18:49 07/16/21 19:03 Succinate 125 mg/ Sterile IV 07/16/21 18:50 125 mg Water 2 ml STAT ONE Administration Furosemide 40 mg 07/16/21 19:05 07/16/21 19:17 Furosemide 40 Mg/4 Ml Vial IV 07/16/21 19:06 40 mg STAT ONE Administration Furosemide Confirm 07/16/21 19:16 Furosemide 40 Mg/4 Ml Vial Administered 07/16/21 19:17 Dose 40 mg .ROUTE .STK-MED ONE Ceftriaxone Sodium/Dextrose 2 g in 50 mls @ 100 mls/hr 07/16/21 18:46 07/16/21 19:33 Rocephin 2 Gm-D5w 50ml Bag IV 07/16/21 19:15 Infused STAT STA Infusion Azithromycin 500 mg in 250 mls @ 250 mls/hr 07/16/21 18:46 07/16/21 20:15 Zithromax 500 Mg/ 250 Ml Nacl Premix IV 07/16/21 19:45 Infused STAT STA Infusion Ceftriaxone Sodium/Dextrose Confirm 07/16/21 19:00 Rocephin 2 Gm-D5w 50ml Bag Administered 07/16/21 19:01 Dose 2 g in 50 mls @ ud IV .STK-MED ONE Azithromycin Confirm 07/16/21 19:06 Zithromax 500 Mg/ 250 Ml Nacl Premix Administered 07/16/21 19:07 Dose 500 mg in 250 mls @ ud IV .STK-MED ONE Methylprednisolone Sodium Succinate Confirm 07/16/21 19:00 Methylprednis Sod Succ 125 Mg/2 Ml Vial Administered 07/16/21 19:01 Dose 125 mg .ROUTE .STK-MED ONE Sterile Water Confirm 07/16/21 19:00 Water For Injection,Sterile 10 Ml Vial Administered 07/16/21 19:01 Dose 10 ml IJ .STK-MED ONE Lab/Rad Data: Laboratory Result Diagrams 07/16/21 18:25 07/16/21 18:25 Laboratory Results 07/16/21 07/16/21 07/16/21 Range/Units 19:10 18:25 18:25 WBC (4.0-10.5) K/mm3 RBC (4.1-5.6) M/mm3 Hgb (12.5-18.0) gm/dl Hct (42-50) % MCV (78-100) fl MCH (26-32) pg MCHC (32-36) g/dl RDW (11.5-14.0) % Plt Count (150-450) K/mm3 MPV (7.5-11.0) fl Gran % (36.0-66.0) % Eos # (Auto) (0-0.5) Absolute Lymphs (auto) (1.0-4.6) Absolute Monos (auto) (0.0-1.3) Lymphocytes % (24.0-44.0) % Monocytes % (0.0-12.0) % Eosinophils % (0.00-5.0) % Basophils % (0.0-0.4) % Absolute Granulocytes (1.4-6.9) Basophils # (0-0.4) Sodium 142 (137-145) mmol/L Potassium 4.5 (3.5-5.1) mmol/L Chloride 100 (98-107) mmol/L Carbon Dioxide 35 H (22-30) mmol/L Anion Gap 11.2 (5-15) MEQ/L BUN 22 H (9-20) mg/dL Creatinine 0.66 (0.66-1.25) mg/dL Estimated GFR > 60.0 ML/MIN Glucose 92 (74-106) mg/dL Calcium 8.7 (8.4-10.2) mg/dL Magnesium 2.0 (1.6-2.3) mg/dL Total Bilirubin 1.80 H (0.2-1.3) mg/dL AST 21 (17-59) U/L ALT 10 (0-50) U/L Alkaline Phosphatase 81 (38-126) U/L Troponin I 0.040 H* (0.000-0.034) ng/mL NT-Pro-B Natriuret Pep 7690 H (0-900) pg/mL Serum Total Protein 6.4 (6.3-8.2) g/dL Albumin 3.3 L (3.5-5.0) g/dL Influenza Type A Ag NEGATIVE (NEGATIVE) Influenza Type B Ag NEGATIVE (NEGATIVE) RSV (PCR) NEGATIVE (Negative) SARS-CoV-2 (PCR) NEGATIVE (NEGATIVE) Slides for Path Review 07/16/21 Range/Units 18:25 WBC 6.9 (4.0-10.5) K/mm3 RBC 5.24 (4.1-5.6) M/mm3 Hgb 13.3 (12.5-18.0) gm/dl Hct 47.7 (42-50) % MCV 91.0 (78-100) fl MCH 25.4 L (26-32) pg MCHC 27.9 L (32-36) g/dl RDW 17.7 H (11.5-14.0) % Plt Count 197 (150-450) K/mm3 MPV 11.4 H (7.5-11.0) fl Gran % 78.0 H (36.0-66.0) % Eos # (Auto) 0.02 (0-0.5) Absolute Lymphs (auto) 0.57 L (1.0-4.6) Absolute Monos (auto) 0.90 (0.0-1.3) Lymphocytes % 8.3 L (24.0-44.0) % Monocytes % 13.1 H (0.0-12.0) % Eosinophils % 0.3 (0.00-5.0) % Basophils % 0.3 (0.0-0.4) % Absolute Granulocytes 5.37 (1.4-6.9) Basophils # 0.02 (0-0.4) Sodium (137-145) mmol/L Potassium (3.5-5.1) mmol/L Chloride (98-107) mmol/L Carbon Dioxide (22-30) mmol/L Anion Gap (5-15) MEQ/L BUN (9-20) mg/dL Creatinine (0.66-1.25) mg/dL Estimated GFR ML/MIN Glucose (74-106) mg/dL Calcium (8.4-10.2) mg/dL Magnesium (1.6-2.3) mg/dL Total Bilirubin (0.2-1.3) mg/dL AST (17-59) U/L ALT (0-50) U/L Alkaline Phosphatase (38-126) U/L Troponin I (0.000-0.034) ng/mL NT-Pro-B Natriuret Pep (0-900) pg/mL Serum Total Protein (6.3-8.2) g/dL Albumin (3.5-5.0) g/dL Influenza Type A Ag (NEGATIVE) Influenza Type B Ag (NEGATIVE) RSV (PCR) (Negative) SARS-CoV-2 (PCR) (NEGATIVE) Slides for Path Review YES - Progress Progress: improved Air Movement: good Progress Note: Patient reassessed. He feels much better. Patient breathing easier. Work-up reveals congestive heart failure and COPD exacerbation. Troponin mildly elevated. Patient has no chest pain. COVID test negative. Lasix administered to address CHF. Plan of care discussed with patient. He agrees to admission to [facility] for further evaluation and treatment. Portions of this note were created with voice recognition technology. There may be grammatical, spelling, punctuation or sound alike errors 07/16/21 20:[address] Nassar who accepts admission to observation. 07/16/21 20:25 Blood Culture(s) Obtained: Yes Antibiotics given: Yes Counseled pt/family regarding: lab results, diagnosis, rad results - Departure Departure Disposition: Observation Clinical Impression: COPD exacerbation, Elevated brain natriuretic peptide (BNP) level, Shortness of breath, CHF (congestive heart failure), Pleural effusion, Pulmonary congestion, Hypoxia Condition: Stable Critical Care Time: No Referrals: COLIN BENITEZ [ACTIVE STAFF] - Follow up/PCP as directed Instructions: Heart Failure, Chronic Obstructive Pulmonary Disease
[2021-07-16 18:58] LABS: ALBUMIN 3.3 g/dL (3.5-5.0); ALKALINE PHOSPHATASE 81 U/L (38-126); ANION GAP 11.2 MEQ/L (5-15); BLOOD UREA NITROGEN 22 mg/dL (9-20); CHLORIDE 100 mmol/L (98-107); Calcium 8.7 mg/dL (8.4-10.2); Carbon Dioxide 35 mmol/L (22-30); Creatinine 1 0.66 mg/dL (0.66-1.25); EST GLOMERULAR FILTRATION RATE > 60.0 ML/MIN; Glucose 92 mg/dL (74-106); NT PRO BNP 7690 pg/mL (0-900); Potassium 4.5 mmol/L (3.5-5.1); SGOT/AST 21 U/L (17-59); SGPT/ALT 10 U/L (0-50); SODIUM 142 mmol/L (137-145); Total Protein 6.4 g/dL (6.3-8.2)
[2021-07-16] MEDS ORDERED: solu-MEDROL ONE (19:00)
[2021-07-16] MEDS ORDERED: Sterile H2O 10 ml IJ ONE (19:00)
[2021-07-16] MEDS ORDERED: ROCEPHIN 2 Gm-D5w 50ML BAG** 2 G/50 ML IVPB IV ONE (19:00)
[2021-07-16] MEDS ORDERED: Lasix 40 MG/4 ML IV ONE (19:05)
[2021-07-16] MEDS ORDERED: Zithromax 500 MG/ 250 ML NaCl Premix 500 MG/250 ML IVPB IV ONE (19:06)
[2021-07-16] MEDS ORDERED: Lasix 40 MG/4 ML ONE (19:16)
[2021-07-16 19:49] LABS: INFLUENZA A NEGATIVE (NEGATIVE); INFLUENZA B NEGATIVE (NEGATIVE); RESPIRATORY SYNCTIAL VIRUS NEGATIVE (Negative); SARS-CoV-2 Xpert Express NEGATIVE (NEGATIVE)
[2021-07-16 20:20] LABS: Slide Review 1 YES
[2021-07-16 23:01] LABS: A-aADO2 318; ABG HEMOGLOBIN 13.3; ABG POTASSIUM 4.6 (3.5-5.1); ARTERIAL BLD GAS O2 SATURATION 97.7 % (95-100); ARTERIAL BLOOD GAS BASE EXCESS 7.3 (-2.0-2.0); ARTERIAL BLOOD GAS FIO2 70 %; ARTERIAL BLOOD GAS PO2 91 mmHg (75-100); ARTERIAL BLOOD GAS pH 7.31 (7.35-7.45); CARBOXYHEMOGLOBIN 2.8 % THgb (0.0-6.9); HCO3- 36.3 (22-28)
[2021-07-16 23:02] LABS: ABG SITE RIGHT BRACHIAL; ARTERIAL BLOOD GAS PCO2 72 mmHg (35-45)
[2021-07-16] MEDS: DUONEB 0.5-3 MG/3 ml Neb IH SCH (23:58)
[2021-07-17] MEDS: DUONEB 0.5-3 MG/3 ml Neb IH SCH ×6 (03:22→22:28)
[2021-07-17 04:17] LABS: ANION GAP 10.7 MEQ/L (5-15); BLOOD UREA NITROGEN 22 mg/dL (9-20); CHLORIDE 99 mmol/L (98-107); Calcium 8.6 mg/dL (8.4-10.2); Carbon Dioxide 36 mmol/L (22-30); Creatinine 1 0.71 mg/dL (0.66-1.25); EST GLOMERULAR FILTRATION RATE > 60.0 ML/MIN; Glucose 139 mg/dL (74-106); NT PRO BNP 8410 pg/mL (0-900); Potassium 4.9 mmol/L (3.5-5.1); SODIUM 141 mmol/L (137-145)
[2021-07-17 04:55] LABS: Hematocrit 49.8 % (42-50); Hemoglobin 13.4 gm/dl (12.5-18.0); Mean Cell Volume 92.4 fl (78-100); Mean Corpuscular Hemoglobin 24.9 pg (26-32); Mean Corpuscular Hgb Concent. 26.9 g/dl (32-36); Mean Platelet Volume 11.2 fl (7.5-11.0); Platelet Count 185 K/mm3 (150-450); Red Blood Count 5.39 M/mm3 (4.1-5.6); Red Cell Distribution Width 17.9 % (11.5-14.0); White Blood Count 6.2 K/mm3 (4.0-10.5)
[2021-07-17 06:07] LABS: A-aADO2 310; ABG HEMOGLOBIN 13.6; ABG POTASSIUM 4.7 (3.5-5.1); ARTERIAL BLD GAS O2 SATURATION 95.7 % (95-100); ARTERIAL BLOOD GAS BASE EXCESS 6.8 (-2.0-2.0); ARTERIAL BLOOD GAS FIO2 70 %; ARTERIAL BLOOD GAS PO2 73 mmHg (75-100); ARTERIAL BLOOD GAS pH 7.22 (7.35-7.45); CARBOXYHEMOGLOBIN 2.6 % THgb (0.0-6.9); HCO3- 38.1 (22-28); HGB O2 SAT 92.4 g/dF (94-100); Methhemoglobin 0.8 % (1.4-1.5)
[2021-07-17 06:08] LABS: ABG SITE RIGHT BRACHIAL; ARTERIAL BLOOD GAS PCO2 93 mmHg (35-45)
[2021-07-17] MEDS: Advair Hfa 115/21 Common canister IH SCH ×2 (06:50→18:53)
[2021-07-17 08:10] LABS: A-aADO2 490; ABG HEMOGLOBIN 13.4; ABG SITE RIGHT RADIAL; ARTERIAL BLD GAS O2 SATURATION 98.3 % (95-100); ARTERIAL BLOOD GAS BASE EXCESS 8.4 (-2.0-2.0); ARTERIAL BLOOD GAS FIO2 100 %; ARTERIAL BLOOD GAS PCO2 104 mmHg (35-45); ARTERIAL BLOOD GAS PO2 93 mmHg (75-100); ARTERIAL BLOOD GAS VENT MODE BiPAP; CARBOXYHEMOGLOBIN 2.3 % THgb (0.0-6.9); HCO3- 40.6 (22-28); HGB O2 SAT 95.1 g/dF (94-100); Methhemoglobin 0.9 % (1.4-1.5)
[2021-07-17 08:18] LABS: Appearance CLEAR (CLEAR); Bilirubin NEGATIVE (NEGATIVE); Dipstick done @ ? MAIN LAB; Glucose NEGATIVE (NEGATIVE); Ketones NEGATIVE (NEGATIVE); Nitrite NEGATIVE (NEGATIVE); Ph 5.5 (5-6); Protein,Urine Dip TRACE (Negative); RBC MODERATE Ery/ul (0-5); Specific Gravity >=1.030 (1.005-1.025); Urobilinogen 0.2 mg/dL (0-1)
[2021-07-17 08:19] LABS: Mucus SLIGHT /HPF (NEGATIVE); RBC 26-50 /HPF (0-2)
[2021-07-17 08:20] LABS: Bacteria FEW /HPF (NEGATIVE); Epithelial Cells FEW /HPF (FEW)
--- NOTE | 2021-07-17 08:42 | XRAY ---
Indication: Chest pain. Comparison: August 06, 2018. Portable chest demonstrates interval enlarging heart, mild central vascular congestion, and moderate right base infiltrate/atelectasis/effusion, possible cardiac decompensation/CHF in right clinical setting. Superimposed pneumonia not completely excluded. Bony thorax intact with osteopenia, degenerative changes, and old bilateral rib fractures.
[2021-07-17] MEDS: solu-MEDROL 60 MG, Sterile H2O 10 ml 2 ML IV SCH ×6 (09:15→21:22)
[2021-07-17] MEDS: NYSTOP POWDER 15 GM TP SCH ×2 (09:16→21:23)
[2021-07-17] MEDS: Lasix 40 MG/4 ML IV SCH ×2 (09:23→17:00)
[2021-07-17 10:27] LABS: A-aADO2 356; ABG HEMOGLOBIN 13.4; ABG POTASSIUM 4.8 (3.5-5.1); ABG SITE LEFT RADIAL; ALLEN TEST OK? YES; ARTERIAL BLD GAS O2 SATURATION 99.3 % (95-100); ARTERIAL BLD GAS TIDAL VOLUME 550 cc; ARTERIAL BLOOD GAS BASE EXCESS 11.1 (-2.0-2.0); ARTERIAL BLOOD GAS FIO2 80 %; ARTERIAL BLOOD GAS PCO2 89 mmHg (35-45); ARTERIAL BLOOD GAS PO2 103 mmHg (75-100); ARTERIAL BLOOD GAS VENT MODE BiPAP; ARTERIAL BLOOD GAS pH 7.28 (7.35-7.45); CARBOXYHEMOGLOBIN 2.2 % THgb (0.0-6.9); HCO3- 41.8 (22-28); HGB O2 SAT 96.1 g/dF (94-100)
[2021-07-17] MEDS ORDERED: Zofran 4 MG/2 ML VIAL IV PRN (10:50)
[2021-07-17] MEDS ORDERED: Ativan 2 MG/1 ML VIAL IV PRN (11:33)
[2021-07-17] MEDS ORDERED: Romazicon 0.5 MG/5 ML Injection ONE (12:20)
[2021-07-17] MEDS ORDERED: Sodium Chloride 0.9% 1000 ML 1,000 ML ONE (12:26)
[2021-07-17] MEDS ORDERED: Quelicin Fliptop 200 MG/10 ML ONE (12:32)
[2021-07-17] MEDS ORDERED: Zofran 4 MG/2 ML VIAL ONE (12:32)
[2021-07-17] MEDS ORDERED: PROTONIX 40 MG IV IV ONE (12:32)
[2021-07-17] MEDS ORDERED: Amidate 20 MG/10 ML IV ONE (12:32)
[2021-07-17] MEDS ORDERED: Zemuron 100 MG/10 ML 100 MG in Sodium Chloride 0.9% 100 ML BAG 90 ML IV PRN (12:57)
[2021-07-17] MEDS ORDERED: Cleocin Phosphate IV 600 MG/4 ML IV SCH (13:00)
--- NOTE | 2021-07-17 13:04 | XRAY ---
Indication: Tube placement. Comparison: One day earlier. Portable chest demonstrates new endotracheal tube tip 4 cm above therese. Remaining chest again demonstrates cardiomegaly, central vascular congestion, and right base infiltrate/atelectasis/effusion. New mild diffuse pulmonary edema and mild left base infiltrate/atelectasis.
--- NOTE | 2021-07-17 13:43 | XRAY ---
Indication: OG tube placement. Comparison: Taken earlier in the day. Portable chest demonstrates new OG tube traversing chest with tip in stomach. Stable endotracheal tube tip 5 cm above therese. Remaining chest again demonstrates cardiomegaly, central vascular congestion, and pulmonary edema with worsening moderate right and mild left base infiltrates/atelectasis/effusions again favoring cardiac decompensation/CHF. Superimposed pneumonia not completely excluded.
[2021-07-17] MEDS ORDERED: CLINDAMYCIN-D5W 600 MG/50 ML*** 600 MG/50 ML BAG IV SCH (14:00)
[2021-07-17 14:46] LABS: ABG HEMOGLOBIN 13.8; ABG POTASSIUM 4.5 (3.5-5.1); ARTERIAL BLD GAS O2 SATURATION 82.8 % (95-100); ARTERIAL BLD GAS TIDAL VOLUME 550 cc; ARTERIAL BLOOD GAS FIO2 100 %; ARTERIAL BLOOD GAS PCO2 125 mmHg (35-45); ARTERIAL BLOOD GAS PO2 55 mmHg (75-100); ARTERIAL BLOOD GAS VENT MODE BiPAP; ARTERIAL BLOOD GAS pH 7.14 (7.35-7.45); CARBOXYHEMOGLOBIN 1.9 % THgb (0.0-6.9); HGB O2 SAT 80.5 g/dF (94-100); Methhemoglobin 0.9 % (1.4-1.5)
[2021-07-17 14:47] LABS: ABG SITE RIGHT BRACHIAL
[2021-07-17] MEDS: ClINDAMYCIN Phosphate IVPB 300 MG/50 ML IVPB IV SCH ×2 (15:02→23:09)
[2021-07-17] MEDS ORDERED: Nimbex 200MG/20 Ml MDV (HIGH RISK MED)** 200 MG in Dextrose 5%/Water IV Soln. 250 ML 18... IV PRN (15:15)
[2021-07-17 15:18] LABS: ARTERIAL BLOOD GAS pH 7.45 (7.35-7.45)
[2021-07-17 15:19] LABS: ARTERIAL BLOOD GAS PCO2 63 mmHg (35-45); ARTERIAL BLOOD GAS PO2 94 mmHg (75-100)
[2021-07-17 15:20] LABS: ARTERIAL BLD GAS O2 SATURATION 98.9 % (95-100); ARTERIAL BLOOD GAS BASE EXCESS 16.5 (-2.0-2.0); HCO3- 43.8 (22-28)
[2021-07-17 15:21] LABS: A-aADO2 540; ABG HEMOGLOBIN 12.9; ABG POTASSIUM 4.3 (3.5-5.1); ARTERIAL BLD GAS TIDAL VOLUME 600 cc; ARTERIAL BLOOD GAS FIO2 100 %; ARTERIAL BLOOD GAS PEEP 5 cmH2O; ARTERIAL BLOOD GAS VENT MODE AC; ARTERIAL BLOOD GAS VENT RATE 20 /MIN; CARBON DIOXIDE 45 mEq/L (23-27); CARBOXYHEMOGLOBIN 1.7 % THgb (0.0-6.9); HGB O2 SAT 96.1 g/dF (94-100); Methhemoglobin 1.1 % (1.4-1.5)
[2021-07-17 15:22] LABS: ABG SITE RIGHT RADIAL
[2021-07-17] MEDS: PROTONIX 40 MG IV*** 80 MG in Sodium Chloride 0.9% 500 ML 500 ML IV SCH (15:32)
[2021-07-17] MEDS ORDERED: FENTANYL 500 MCG/10 ML VIAL 1,500 MCG in Sodium Chloride 0.9% 150 ML 120 ML IV PRN (16:05)
[2021-07-17 16:07] LABS: Absolute Neutrophil Ct (ANC) 6.33 (1.4-6.9); Basophil (Absolute #) 0.01 (0-0.4); Eosinophil % 0.1 % (0.00-5.0); Eosinophil (Absolute #) 0.01 (0-0.5); Hematocrit 54.5 % (42-50); Hemoglobin 14.6 gm/dl (12.5-18.0); Lymphocyte (Absolute #) 0.57 (1.0-4.6); Lymphocytes % 7.8 % (24.0-44.0); Mean Cell Volume 93.3 fl (78-100); Mean Corpuscular Hgb Concent. 26.8 g/dl (32-36); Mean Platelet Volume 11.8 fl (7.5-11.0); Monocyte (Absolute #) 0.38 (0.0-1.3); Monocytes % 5.2 % (0.0-12.0); Neutrophil % 86.8 % (36.0-66.0); Platelet Count 190 K/mm3 (150-450); Red Blood Count 5.84 M/mm3 (4.1-5.6); Red Cell Distribution Width 18.5 % (11.5-14.0); White Blood Count 7.3 K/mm3 (4.0-10.5)
[2021-07-17 16:16] LABS: ALBUMIN 3.4 g/dL (3.5-5.0); ALKALINE PHOSPHATASE 75 U/L (38-126); ANION GAP 12.7 MEQ/L (5-15); BLOOD UREA NITROGEN 24 mg/dL (9-20); CHLORIDE 99 mmol/L (98-107); Carbon Dioxide 38 mmol/L (22-30); Creatinine 1 0.66 mg/dL (0.66-1.25); EST GLOMERULAR FILTRATION RATE > 60.0 ML/MIN; Potassium 4.9 mmol/L (3.5-5.1); SGOT/AST 20 U/L (17-59); SGPT/ALT 9 U/L (0-50); SODIUM 144 mmol/L (137-145); Total Protein 6.8 g/dL (6.3-8.2)
[2021-07-17 16:22] LABS: Glucose 143 mg/dL (74-106)
[2021-07-17] MEDS ORDERED: Propofol 1000 mg/100 ml Bottle 100 ML IV ONE (17:00)
[2021-07-17] MEDS: Propofol 1000 mg/100 ml Bottle 100 ML IV PRN ×2 (17:23→21:21)
[2021-07-17] MEDS ORDERED: PERIDEX ONE (21:25)
[2021-07-17] MEDS ORDERED: Lubrifresh P.M. 3.5 gm Ointment OP SCH (22:00)
[2021-07-17] MEDS ORDERED: ROCEPHIN 1 Gm-D5w 50 ml Bag** 1 G/50 ML IVPB IV SCH (22:00)
[2021-07-17] MEDS ORDERED: Zithromax 500 MG/ 250 ML NaCl Premix 500 MG/250 ML IVPB IV SCH (22:00)
[2021-07-17] MEDS ORDERED: CHLORHEXIDINE GLUCONATE MM SCH (22:00)
[2021-07-18] MEDS: Propofol 1000 mg/100 ml Bottle 100 ML IV PRN ×3 (01:07→08:04)
[2021-07-18] MEDS: PROTONIX 40 MG IV*** 80 MG in Sodium Chloride 0.9% 500 ML 500 ML IV SCH (02:23)
[2021-07-18] MEDS: DUONEB 0.5-3 MG/3 ml Neb IH SCH ×2 (03:20→07:20)
[2021-07-18] MEDS: solu-MEDROL 60 MG, Sterile H2O 10 ml 2 ML IV SCH ×2 (03:46)
[2021-07-18 04:04] LABS: A-aADO2 12; ABG HEMOGLOBIN 12.1; ABG POTASSIUM 3.8 (3.5-5.1); ARTERIAL BLD GAS O2 SATURATION 98.1 % (95-100); ARTERIAL BLOOD GAS BASE EXCESS 19.3 (-2.0-2.0); ARTERIAL BLOOD GAS PCO2 48 mmHg (35-45); ARTERIAL BLOOD GAS PO2 78 mmHg (75-100); CARBOXYHEMOGLOBIN 1.1 % THgb (0.0-6.9); HGB O2 SAT 95.9 g/dF (94-100); Methhemoglobin 1.1 % (1.4-1.5)
[2021-07-18 04:05] LABS: ARTERIAL BLD GAS TIDAL VOLUME 600 cc; ARTERIAL BLOOD GAS FIO2 90 %; ARTERIAL BLOOD GAS PEEP 8 cmH2O; ARTERIAL BLOOD GAS VENT MODE AC; ARTERIAL BLOOD GAS VENT RATE 20 /MIN; ARTERIAL BLOOD GAS pH 7.57 (7.35-7.45)
[2021-07-18 04:06] LABS: ABG SITE RIGHT BRACHIAL
[2021-07-18 05:11] LABS: Hematocrit 42.9 % (42-50); Hemoglobin 12.1 gm/dl (12.5-18.0); Mean Cell Volume 89.9 fl (78-100); Mean Corpuscular Hemoglobin 25.4 pg (26-32); Mean Corpuscular Hgb Concent. 28.2 g/dl (32-36); Mean Platelet Volume 11.4 fl (7.5-11.0); Platelet Count 170 K/mm3 (150-450); Red Blood Count 4.77 M/mm3 (4.1-5.6); Red Cell Distribution Width 18.1 % (11.5-14.0); White Blood Count 7.6 K/mm3 (4.0-10.5)
[2021-07-18] MEDS: ClINDAMYCIN Phosphate IVPB 300 MG/50 ML IVPB IV SCH (05:50)
[2021-07-18 05:52] LABS: ALBUMIN 2.7 g/dL (3.5-5.0); ALKALINE PHOSPHATASE 56 U/L (38-126); ANION GAP 8.2 MEQ/L (5-15); BLOOD UREA NITROGEN 27 mg/dL (9-20); CHLORIDE 97 mmol/L (98-107); Calcium 8.4 mg/dL (8.4-10.2); Carbon Dioxide 38 mmol/L (22-30); Creatinine 1 0.68 mg/dL (0.66-1.25); EST GLOMERULAR FILTRATION RATE > 60.0 ML/MIN; Glucose 113 mg/dL (74-106); NT PRO BNP 4550 pg/mL (0-900); Potassium 3.7 mmol/L (3.5-5.1); SGOT/AST 15 U/L (17-59); SGPT/ALT 8 U/L (0-50); SODIUM 140 mmol/L (137-145); Total Protein 5.6 g/dL (6.3-8.2)
[2021-07-18] MEDS: Advair Hfa 115/21 Common canister IH SCH (07:20)
[2021-07-18 07:47] LABS: Slide Review YES
[2021-07-18 08:18] VITALS: O2SAT 95
--- NOTE | 2021-07-18 08:39 | XRAY ---
Indication: Follow-up ventilator. Comparison: One day earlier. Portable chest again demonstrates bibasilar infiltrates/atelectasis/effusions minimally improved on the left. Heart remains slightly enlarged with diminished central vascular congestion. No new cardiopulmonary abnormalities. Stable NG tube and endotracheal tube.
[2021-07-18 09:19] VITALS: BP 102/64; PULSE 59
[2021-07-18] MEDS ORDERED: PERIDEX MM SCH (10:00)
== END 2021-07-18 09:40 | disposition short-term general hospital (02) | DRG 292 ==
LOC: ED 17:40 → MED SURG 21:53 → OBSVTOIN 07-17 06:17 → ICU 07-17 12:22
PROVIDERS: ADMIT Family Medicine; ATTEND Family Medicine
DX: I50.9 Heart failure, unspecified (principal); J44.1 Chronic obstructive pulmonary disease with (acute) exacerbation; R00.1 Bradycardia, unspecified; R77.8 Other specified abnormalities of plasma proteins; Z79.899 Other long term (current) drug therapy; Z99.81 Dependence on supplemental oxygen; Z72.0 Tobacco use
CPT/HCPCS: 0241U; 31500; 36415; 36600; 71045; 80048; 80053; 81001; 82375; 82803; 82947; 83605; 83735; 83880; 84484; 85025; 85027; 87040; 87086; 93005; 93041; 93268; 94002; 94003; 94640; 94760; 94762; 94799; 96365; 96368; 96374; 96375; 99285; J0330; J0456; J0696; J1940; J2060; J2405; J2704; J2930; J3010; A9270-GY; G0378